=== PATIENT | female | born 1970 | race Caucasian/White ===

== ENCOUNTER 2022-05-18 06:17 | Emergency (ER) | payer MEDICARE, MEDICAID, SELFPAY ==
[2022-05-18 06:27] VITALS: BP 105/68; PULSE 127; RESP 18; TEMP 37.4; O2SAT 96
[2022-05-18 07:18] LABS: Influenza A QL RT-PCR Positive (Negative); Influenza B QL RT-PCR Negative (Negative); RSV RNA, RT-PCR Negative (Negative); SARS-CoV-2 RNA PCR Negative
--- NOTE | 2022-05-18 08:25 | ED.FEVER ---
HPI - Fever General Chief Complaint: Fever Stated Complaint: fevers Time Seen by Provider: 05/18/22 07:58 History of Present Illness HPI Narrative: 52-year-old female presenting the emergency department for evaluation of fever body aches cough and right flank pain since May 06. Patient states she was initially evaluated at [facility] emergency department and was diagnosed with strep throat. Patient then had follow-up with her primary care physician. Patient states she did complete a course of azithromycin. Patient states she has since had worsening body ache and fatigue. Related Data Allergies Allergy/AdvReac Type Severity Reaction Status Date / Time codeine Allergy Unknown Verified 10/05/17 08:18 Penicillins Allergy Unknown Verified 10/05/17 08:18 tetracycline Allergy Unknown Verified 10/05/17 08:18 Review of Systems Review of Systems: CONSTITUTIONAL: See HPI EYES: Denies visual changes, redness, or discharge. ENT: See HPI CARDIOVASCULAR: Denies chest pain, palpitations, or edema. RESPIRATORY: See HPI GASTROINTESTINAL: Denies abdominal pain, nausea, vomiting, or diarrhea. GENITOURINARY: Denies dysuria or hematuria. SKIN: Denies rash or itching. MUSCULOSKELETAL: Denies back pain, joint pain, or myalgia. NEUROLOGIC: Denies headache, numbness, or weakness. [facility] Family History Family History (Updated 10/05/17 @ 08:21 by DOCTOR UNKNOWN) Father Family history of malignant neoplasm Patient's father is Family history of alcoholism Mother Patient's mother is Cerebrovascular accident Family history of coronary artery disease Depression Grandparent Family history of coronary artery disease Sibling Patient's brother is in good health Other Family history of mental disorder Hypertension Social History Social History Smoking status: Heavy tobacco smoker Second hand tobacco smoke exposure: Yes Alcohol intake: never Substance use type: marijuana Exam Narrative: APPEARANCE: Ill-appearing HEAD: normocephalic, atraumatic. EYES: PERRLA/EOMI, conjunctivae clear. NOSE: Normal no drainage EARS:TMS clear with good light reflex. THROAT: Posterior pharynx erythema NECK: Supple. No adenopathy, no masses. RESPIRATORY: Airway patent, respirations nonlabored. Clear to auscultation bilaterally, no rales, rhonchi, wheezing. CARDIOVASCULAR: Regular rate and rhythm without murmurs rubs or gallops. ABDOMINAL: Soft, nontender, nondistended, normal bowel sounds MUSCULOSKELETAL: Moves all extremities. Strength/ROM intact, No edema, No calf tenderness. NEURO: Alert. Cranial nerves II through XII intact. Grossly intact SKIN: Warm, dry. Normal Color Course Course Emergency Course: Patient did feel improved with treatment. Patient was given a second course of antibiotics for her strep throat. Patient was started on Tamiflu for her influenza. Patient was also provided with albuterol inhaler and Tessalon Perles for cough. Patient states she does feel improved. Patient was comfortable with the plan for discharge and close follow-up. Patient was educated on reasons to return to the emergency department. Vital Signs Vital signs: Vital Signs Temperature 99.4 F 05/18/22 06:27 Pulse Rate 127 H 05/18/22 06:27 Respiratory Rate 18 05/18/22 06:27 Blood Pressure 105/68 05/18/22 06:27 Pulse Oximetry 96 05/18/22 06:27 Oxygen Delivery Room Air 05/18/22 06:27 Temperature 99.4 F 05/18/22 06:27 Pulse Rate 91 05/18/22 09:45 Respiratory Rate 16 05/18/22 09:45 Blood Pressure 107/67 05/18/22 09:45 Pulse Oximetry 97 05/18/22 09:45 Oxygen Delivery Room Air 05/18/22 06:27 MDM - Fever Lab Data 05/18/22 08:33 05/18/22 08:33 Labs: Lab Results 05/18/22 05/18/22 05/18/22 Range/Units 06:23 08:33 08:33 WBC 7.3 (4.5-10.0) K/mm3 RBC 3.92 L (4.2-5.4) M/mm3 Hgb 12.7 (12.0-15.0) g/dL Hct 37.3
[2022-05-18 08:35] VITALS: BP 111/63; PULSE 101; RESP 16; O2SAT 93
[2022-05-18 08:56] LABS: Alanine Aminotransferase 16 U/L (6-35); Albumin Level 4.3 g/dL (3.5-5.1); Alkaline Phosphatase 92 U/L (38-126); Anion Gap 9 mmol/L (8-16); Aspartate Amino Transferase 25 U/L (14-36); Bilirubin,Total 0.2 mg/dL (0.2-1.3); Blood Urea Nitrogen 8 mg/dL (7-17); Calcium 8.3 mg/dL (8.4-10.2); Carbon Dioxide 21 mmol/L (22-30); Chloride 104 mmol/L (98-107); Estimated CRCL calculation 78 ml/min; Estimated Glomerular Filt Rate > 60; Glucose 118 mg/dL (65-110); Potassium 3.7 mmol/L (3.4-5.0); Sodium 134 mmol/L (137-145)
[2022-05-18 08:57] LABS: Basophils Absolute Auto 0.1 K/mm3 (0.0-0.1); Basophils Percent Auto 1.2 % (0.2-1.2); Eosinophils Absolute Auto 0.1 K/mm3 (0-0.3); Eosinophils Percent Auto 1.2 % (0-4.4); Hematocrit 37.3 % (37.0-47.0); Hemoglobin 12.7 g/dL (12.0-15.0); Immature Granulocyte Absolute 0.09 K/mm3 (0.00-0.031); Immature Granulocyte Percent A 1.2 % (0-0.5); Lymphocytes Absolute Auto 2.68 K/mm3 (0.9-3.2); Lymphocytes Percent Auto 36.5 % (18.3-44.2); Mean Corpuscular Hemoglobin 32.4 pg (26-34); Mean Corpuscular Volume 95.2 fl (80-100); Mean Platelet Volume 9.4 fl (7.4-10.4); Monocytes Absolute Auto 1.1 K/mm3 (0.1-0.6); Monocytes Percent Auto 14.4 % (2.6-8.5); Neutrophils Absolute Auto 3.3 K/mm3 (1.3-6.7); Neutrophils Percent Auto 45.5 % (45.5-73.1); Platelet Count Result 391 k/mm3 (150-375); Red Blood Count 3.92 M/mm3 (4.2-5.4); Red Cell Distribution Width 13.6 % (11.5-14.5); White Blood Count 7.3 K/mm3 (4.5-10.0)
[2022-05-18 09:10] LABS: Strep Group A RT-PCR DETECTED (Negative)
[2022-05-18 09:24] VITALS: BP 107/75; PULSE 98; RESP 18; O2SAT 96
[2022-05-18] MEDS: SODIUM CHLORIDE 0.9% IV 1,000 ML 999 ML IV CONT (09:24)
[2022-05-18] MEDS: CLINDAMYCIN HCL 150 MG CAP PO (09:44)
[2022-05-18] MEDS: OSELTAMIVIR PHOSPHATE 75 MG CAPSULE PO (09:44)
[2022-05-18 09:45] VITALS: BP 107/67; PULSE 91; RESP 16; O2SAT 97
[2022-05-18] MEDS: KETOROLAC 15 MG/ML VIAL (*BKC) IV PUSH (09:53)
[2022-05-18 10:03] LABS: Add Urine Microscopic? YES; Appearance Urine Clear (Clear); Bilirubin Urine Negative (Negative); Blood Urine 1+ (Negative); Color Urine Light Yellow (Yellow); Glucose Urine UA Negative (Negative); Ketones Urine 1+ mg/dL (Negative); Leukocyte Esterase Ur Negative LEU/UL (Negative); Nitrate Urine Negative (Negative); Protein Urine Negative (Negative); Urobilinogen Urine 0.2 mg/dL (<2.0)
[2022-05-18 10:13] LABS: Bacteria Urine Trace /hpf; RBC Urine 0-2 /hpf (0-2); Squamous Epithelial Cell Urine Rare /hpf (Few); WBC Urine 0-3 /hpf
== END 2022-05-18 10:30 | disposition home or self-care (01) ==
PROVIDERS: Emergency Medicine; Emergency Provider Emergency Medicine; PCP Family Medicine
DX: J02.0 Streptococcal pharyngitis (principal); J10.1 Influenza due to other identified influenza virus with other respiratory manifestations; Z20.822 Contact with and (suspected) exposure to COVID-19; F17.200 Nicotine dependence, unspecified, uncomplicated
CPT/HCPCS: 36415; 80053; 81001; 85025; 87637; 87651; 96361; 96365; 96375; 99284; A9270; J0131; J1885; J7030

== ENCOUNTER 2023-01-26 11:57 | Emergency (ER) | payer MEDICARE, MEDICAID, SELFPAY ==
--- NOTE | ~2023-01-26 | XR_ITS ---
EXAMINATION: XR chest 2V DATE: 01/26/2023 12:23 INDICATION: Chest pain, tachycardia and shortness of breath TECHNIQUE: PA and lateral views of the chest were obtained. COMPARISON: Chest radiograph dated 07/09/2009 FINDINGS: Mild right apical pleural-parenchymal scarring. New calcified left lower lobe nodule consistent with old granulomatous disease. No other airspace opacities, pulmonary edema, pleural effusion or pneumoth orax. The cardiomediastinal silhouette is normal. Bilateral breast implants. IMPRESSION: 1. No acute cardiopulmonary disease. Reviewed, dictated and finalized at location A.
--- NOTE | 2023-01-26 12:00 | ECG_ITS ---
Measurements Intervals [place] Rate: 99 P: 58 AR: 137 QRS: 50 QRSD: 80 T: 54 QT: 351 QTc: 451 Interpretive Statements SINUS RHYTHM LOW QRS VOLTAGE IN PRECORDIAL LEADS [QRS DEFLECTION < 1.0 mV IN CHEST LEADS] BORDERLINE ECG NO PREVIOUS ECG AVAILABLE FOR COMPARISON Electronically Signed On 01-26-2023 12:20:42 CDT by Aki Atkins M.D.
[2023-01-26 12:23] VITALS: BP 118/74; PULSE 95; RESP 16; TEMP 36.4; O2SAT 99
[2023-01-26 12:37] LABS: Basophils Absolute Auto 0.1 K/mm3 (0.0-0.1); Basophils Percent Auto 1.2 % (0.2-1.2); Eosinophils Absolute Auto 0.1 K/mm3 (0-0.3); Eosinophils Percent Auto 0.9 % (0-4.4); Hematocrit 41.4 % (37.0-47.0); Hemoglobin 13.9 g/dL (12.0-15.0); Immature Granulocyte Percent A 0.9 % (0-0.5); Lymphocytes Percent Auto 53.1 % (18.3-44.2); Mean Corpuscular HGB Conc 33.6 g/dl (32-36); Mean Corpuscular Hemoglobin 32.2 pg (26-34); Mean Corpuscular Volume 95.8 fl (80-100); Mean Platelet Volume 9.2 fl (7.4-10.4); Monocytes Percent Auto 9.1 % (2.6-8.5); Neutrophils Absolute Auto 3.9 K/mm3 (1.3-6.7); Neutrophils Percent Auto 34.8 % (45.5-73.1); Platelet Count Result 464 k/mm3 (150-375); Red Blood Count 4.32 M/mm3 (4.2-5.4); Red Cell Distribution Width 13.4 % (11.5-14.5); White Blood Count 11.1 K/mm3 (4.5-10.0)
[2023-01-26 12:48] LABS: Alanine Aminotransferase 16 U/L (6-35); Albumin Level 4.3 g/dL (3.5-5.1); Alkaline Phosphatase 89 U/L (38-126); Anion Gap 11 mmol/L (8-16); Aspartate Amino Transferase 23 U/L (14-36); Bilirubin,Total 0.3 mg/dL (0.2-1.3); Blood Urea Nitrogen 12 mg/dL (7-17); Calcium 8.9 mg/dL (8.4-10.2); Carbon Dioxide 23 mmol/L (22-30); Chloride 104 mmol/L (98-107); Estimated CRCL calculation 68 ml/min; Estimated Glomerular Filt Rate > 60; Glucose 129 mg/dL (65-110); Lipase 44 U/L (23-300); Potassium 4.3 mmol/L (3.4-5.0); Sodium 138 mmol/L (137-145)
[2023-01-26 12:52] LABS: INR 0.9
[2023-01-26 12:53] LABS: Partial Thromboplastin Time 29.8 SECONDS (22.3-36.8)
[2023-01-26 12:58] LABS: Troponin I < 0.012 ng/mL (0.000-0.034)
--- NOTE | 2023-01-26 15:02 | PC.NURSE ---
attempted to call patient for room without answer.
--- NOTE | 2023-01-26 15:22 | PC.NURSE ---
called patient from waiting room with no answer. left without being seen
== END 2023-01-26 16:36 | disposition left against medical advice (07) ==
PROVIDERS: Emergency Provider Student in an Organized Health Care Education/Training Program; PCP Family Medicine
DX: R06.02 Shortness of breath (principal)
CPT/HCPCS: 36415; 71046; 80053; 83690; 84484; 85025; 85610; 85730; 93005; 99199

== ENCOUNTER 2023-03-15 13:56 | Outpatient (CLI) | payer MEDICARE, MEDICAID, SELFPAY ==
--- NOTE | 2023-03-19 15:48 | WPDHOLTEREM ---
Holter/Event Monitor Holter/Event Monitor Date of procedure: 03/15/23 Holter/Event Procedure: 48 Hr Holter Monitor Indications: Tachycardia Conclusion: 1. 48 hour holter monitor on 03/15/23. 2. Underlying rhythm is sinus rhythm. HR range 69-156 bpm; average HR 92 bpm. HR at 156 bpm was at 13:39. 3. There are 3 premature supraventricular complexes and 3 supraventricular couplets. No supraventricular tachycardia. 4. There are 4 premature ventricular complexes. No ventricular tachycardia. 5. No sinoatrial or atrioventricular blocks. No significant pauses greater than 2 seconds. 6. No symptoms available for correlation.
== END 2023-03-15 13:57 | disposition home or self-care (01) ==
LOC: ANHCARD 13:57
PROVIDERS: PCP Family Medicine; Visit Provider Nurse Practitioner Family
DX: R00.0 Tachycardia, unspecified (principal)
CPT/HCPCS: 93225; 93226

== ENCOUNTER 2024-07-12 13:34 | Outpatient (CLI) | payer MEDICARE, MEDICAID, SELFPAY ==
--- NOTE | ~2024-07-12 | US_ITS ---
US abdomen limited INDICATION: Leukocytosis PROCEDURE: Realtime right upper abdominal ultrasound. COMPARISON: CT dated 07/08/2009 FINDINGS: The pancreas is normal without focal mass or pancreatic ductal dilation. Liver echotexture is normal without focal mass or intrahepatic biliary dilatation. There is normal directional flow i n the portal vein. Gallbladder is surgically absent Common bile duct measures 11 mm. No sonographic Barrett's sign. Spl een is surgically absent. IMPRESSION: 1: Status post cholecystectomy with expected prominence of the bile ducts. Reviewed, dictated and finalized at location B. ER ASSEMBLER
--- OUTSIDE RECORDS SUMMARY | 2024-07-12 13:39 | XMS_ITS | Referral Summary ---
Author Organization [facility] Address [address] [place] [address] Care Team Providers Care Horse Race Timer Name Role Phone Stephanie Faustin LEAD ELECTRICAL CONTROLS ENGINEER-[facility] Primary Care Provider + Source Comments [facility] and Associated [facility]ician Practices is amultiple site organization consisting of ambulatory clinics and hospital sitesin [place], [place], [place] and [place]. This disclosure is being madepursuant to the Care Everywhere program and may not contain all information available regarding this patient. Last updated 18.[facility] Encounters Date Type Department Care Team Description 07/05/2024 Orders Only [facility] Cancer [facility] [address] [place] [phone] Joey Canela MD 07/04/[address] [address] Joey Canela MD General 06/27/2024 12:50 PM INDUSTRIAL ENGINEERING INTERN Office Visit [facility] Cancer [address] [address] Joey Canela MD Leukocytosis, unspecified type (Primary Dx); Tobacco abuse 05/11/2024 Orders Only [facility] - Rheumatology [address] [place] [address], [address] [phone] Tamika George MD Positive RENO (antinuclear antibody); Leukocytosis, unspecified type 05/02/2024 Telephone [facility] - Rheumatology [address] [place] [address], [address] [place] [address] Tamika George MD Order 04/25/2024 11:20 AM INDUSTRIAL ENGINEERING INTERN Office Visit [facility] - Rheumatology [address], [address] [place] [address] Tamika George MD Positive RENO (antinuclear antibody) (Primary Dx); Polyarthralgia; Myalgia, multiple sites; Other fatigue; Dry mouth; Numbness; Other low back pain; Leukocytosis, unspecified type from Last 3 Months Allergies Active Allergy Reactions Criticality Noted Date Comments Codeine Swelling High 04/12/2023 Penicillins Anaphylaxis High 04/04/2024 Tetracycline Rash Medium 04/04/2024 Medications * Be aware that medications may not be up to date on this document. Alwaysverify current medications with the patient. Medication Sig Dispensed Refills Start Date End Date Status albuterol HFA (Proventil; Ventolin; Proair) 108 (90 Base) MCG/ACT inhaler Take 2 (two) puffs by mouth every 4 hours as needed Active doxepin (SINEquan) 150 MG capsule Take 1 (one) capsule by mouth at bedtime Active ezetimibe (Zetia) 10 MG tablet Take 1 (one) tablet by mouth once daily Active hydrOXYzine pamoate (Vistaril) 25 MG capsule Take 1 (one) capsule by mouth 3 times daily 03/28/2024 Active rosuvastatin (Crestor) 40 MG tablet Take 1 (one) tablet by mouth once daily Active ibuprofen (Motrin) 600 MG tablet 08/23/2023 Active temazepam (Restoril) 30 MG capsule Take 1 (one) capsule by mouth at bedtime Active hydroxychloroquin e (Plaquenil) 200 MG tabletIndications :Positive RENO (antinuclear antibody) Take 1 (one) tablet by mouth once daily 30 tablet 1 04/25/2024 Active Other Smokes medical marijuana prn for pain Active hydrOXYzine pamoate (Vistaril) 50 MG capsule Take 1 (one) capsule by mouth 3 times daily as needed 06/27/2024 Discontinued (Tx Complete) Active Problems No known active problems Social History Tobacco Use Types Packs/Day Years Used Date Smoking Tobacco: Every Day Cigarettes Smokeless Tobacco: Never Comments:1/2-1 pack a day PHQ-2 Answer Date Recorded Patient Health Questionnaire-2 Score 0 06/27/2024 Hunger Vital Sign Answer Date Recorded Within the past 12 months, y ou worried that your food would run out before you got the money to buy more. Never true 06/27/19 25 Within the past 12 months, t he food you bought just didn't last and you didn't have money to get more. Never true 06/27/2024 Sex and Gender Information Value Date Recorded Sex Assigned at Not on file Gender Identity Not on file Sexual Orientation Not on file Last Filed Vital Signs Vital Sign Reading Time Taken Comments Blood Pressure 122/72 06/27/2024 1:02 PM INDUSTRIAL ENGINEERING INTERN Pulse 104 06/27/2024 1:02 PM INDUSTRIAL ENGINEERING INTERN Temperature 36.7 C (98.1 F) 06/27/2024 1:02 PM INDUSTRIAL ENGINEERING INTERN Respiratory Rate - - Oxygen Saturation 100% 06/27/2024 1:02 PM INDUSTRIAL ENGINEERING INTERN Inhaled Oxygen Concentration - - Weight 68.8 kg (151 lb 12 oz) 06/27/2024 1:02 PM INDUSTRIAL ENGINEERING INTERN Height 170.2 cm (5' 7 ) 06/27/2024 1:02 PM INDUSTRIAL ENGINEERING INTERN Body Mass Index 23.77 06/27/2024 1:02 PM INDUSTRIAL ENGINEERING INTERN Plan of Treatment Upcoming Encounters Date Type Department Care Team (Late st Contact Info) Description 12/26/2024 2:00 PM CDT Documentation [address] [address] 12/26/2024 2:10 PM CDT Office Visit [address] [address] Joey Canela MD [address] [place] [phone] Procedures Procedure Name Priority Date/Time Associated Diagnosis Comments TSH HI LOW REFLEX FREE T4 Routine 06/27/2024 3:44 PM INDUSTRIAL ENGINEERING INTERN Leukocytosis, unspecified type CBC W AUTO DIFFERENTIAL (CANCER CARE) Routine 06/27/2024 1:46 PM INDUSTRIAL ENGINEERING INTERN Leukocytosis, unspecified type XR CHEST 2VW Routine 05/08/2024 Positive RENO (antinuclear antibody) Leukocytosis, unspecified type SS-A/SS-B (SJOGREN'S) ANTIBODY PANEL Routine 04/12/2024 12:08 PM INDUSTRIAL ENGINEERING INTERN Positive RENO (antinuclear antibody) Polyarthralgia Myalgia, multiple sites Other fatigue Dry mouth Numbness Other low back pain OLSON (SM) ANTIBODY UBALDO Routine 04/12/20 12:08 PM INDUSTRIAL ENGINEERING INTERN Positive RENO (antinuclear antibody) Polyarthralgia Myalgia, multiple sites Other fatigue Dry mouth Numbness Other low back pain SCLERODERMA 70 (SCL) ANTIBODY Routine 04/12/2024 12:08 PM INDUSTRIAL ENGINEERING INTERN Positive RENO (antinuclear antibody) Polyarthralgia Myalgia, multiple sites Other fatigue Dry mouth Numbness Other low back pain INTERRELATED SPECIAL EDUCATION TEACHER ANTIBODY Routine 04/12/2024 12:08 PM INDUSTRIAL ENGINEERING INTERN Positive RENO (antinuclear antibody) Polyarthralgia Myalgia, multiple sites Other fatigue Dry mouth Numbness Other low back pain RENO BLOOD SCREEN W/REFLEX TITER Routine 04/12/2024 12:08 PM INDUSTRIAL ENGINEERING INTERN Positive RENO (antinuclear antibody) Polyarthralgia Myalgia, multiple sites Other fatigue Dry mouth Numbness Other low back pain LIPID PROFILE Routine 04/12/2024 12:05 PM INDUSTRIAL ENGINEERING INTERN Hyperlipidemia, unspecified hyperlipidemia type SCLEROSIS 12 ANTIBODY PNL Routine 04/12/2024 12:05 PM INDUSTRIAL ENGINEERING INTERN Positive RENO (antinuclear antibody) Polyarthralgia Myalgia, multiple sites Other fatigue Dry mouth Numbness Other low back pain PROTEIN CREATININE RATIO URINE RANDOM PNL Routine 04/12/2024 12:05 PM INDUSTRIAL ENGINEERING INTERN Positive RENO (antinuclear antibody) Polyarthralgia Myalgia, multiple sites Other fatigue Dry mouth Numbness Other low back pain THIOPURINE METHYLTRANSFERASE Routine 04/12/2024 12:05 PM INDUSTRIAL ENGINEERING INTERN Positive RENO (antinuclear antibody) Polyarthralgia Myalgia, multiple sites Other fatigue Dry mouth Numbness Other low back pain DNA ANTIBODY DS CRITHIDIA W/REFLEX TITER Routine 04/12/2024 12:05 PM INDUSTRIAL ENGINEERING INTERN Positive RENO (antinuclear antibody) Polyarthralgia Myalgia, multiple sites Other fatigue Dry mouth Numbness Other low back pain RHEUMATOID FACTOR BLOOD QUANTITATIVE Routine 04/12/2024 12:05 PM INDUSTRIAL ENGINEERING INTERN Positive RENO (antinuclear antibody) Polyarthralgia Myalgia, multiple sites Other fatigue Dry mouth Numbness Other low back pain CALCIUM IONIZED BLOOD Routine 04/12/2024 12:05 PM INDUSTRIAL ENGINEERING INTERN Positive RENO (antinuclear antibody) Polyarthralgia Myalgia, multiple sites Other fatigue Dry mouth Numbness Other low back pain HEPATITIS C AB W/RFLX TO HCV RNA QN PCR Routine 04/12/2024 12:05 PM INDUSTRIAL ENGINEERING INTERN Positive RENO (antinuclear antibody) Polyarthralgia Myalgia, multiple sites Other fatigue Dry mouth Numbness Other low back pain HEPATITIS B SURFACE ANTIGEN W RFLX CONFIRMATION Routine 04/12/2024 12:05 PM INDUSTRIAL ENGINEERING INTERN Positive RENO (antinuclear antibody) Polyarthralgia Myalgia, multiple sites Other fatigue Dry mouth Numbness Other low back pain HEPATITIS B CORE ANTIBODY REFLEX IGM Routine 04/12/2024 12:05 PM INDUSTRIAL ENGINEERING INTERN Positive RENO (antinuclear antibody) Polyarthralgia Myalgia, multiple sites Other fatigue Dry mouth Numbness Other low back pain URINALYSIS W/MICROSCOPIC NO CULTURE Routine 04/12/2024 12:05 PM INDUSTRIAL ENGINEERING INTERN Positive RENO (antinuclear antibody) Polyarthralgia Myalgia, multiple sites Other fatigue Dry mouth Numbness Other low back pain ERYTHROCYTE SEDIMENTATION RATE Routine 04/12/2024 12:05 PM INDUSTRIAL ENGINEERING INTERN Positive RENO (antinuclear antibody) Polyarthralgia Myalgia, multiple sites Other fatigue Dry mouth Numbness Other low back pain CYCLIC CITRULLINATED PEPTIDE(CCP) AB IGG Routine 04/12/2024 12:05 PM INDUSTRIAL ENGINEERING INTERN Positive RENO (antinuclear antibody) Polyarthralgia Myalgia, multiple sites Other fatigue Dry mouth Numbness Other low back pain CREATININE BLOOD Routine 04/12/2024 12:0 5 PM INDUSTRIAL ENGINEERING INTERN Positive RENO (antinuclear antibody) Polyarthralgia Myalgia, multiple sites Other fatigue Dry mouth Numbness Other low back pain C-REACTIVE PROTEIN Routine 04/12/2024 12 :05 PM INDUSTRIAL ENGINEERING INTERN Positive RENO (antinuclear antibody) Polyarthralgia Myalgia, multiple sites Other fatigue Dry mouth Numbness Other low back pain COMPLEMENT C4 Routine 04/12/2024 12:05 PM INDUSTRIAL ENGINEERING INTERN Positive RENO (antinuclear antibody) Polyarthralgia Myalgia, multiple sites Other fatigue Dry mouth Numbness Other low back pain COMPLEMENT C3 Routine 04/12/2024 12:05 PM INDUSTRIAL ENGINEERING INTERN Positive RENO (antinuclear antibody) Polyarthralgia Myalgia, multiple sites Other fatigue Dry mouth Numbness Other low back pain CK BLOOD Routine 04/12/2024 12:05 PM INDUSTRIAL ENGINEERING INTERN Positive RENO (antinuclear antibody) Polyarthralgia Myalgia, multiple sites Other fatigue Dry mouth Numbness Other low back pain CBC W AUTO DIFFERENTIAL Routine 04/12/20 24 12:05 PM INDUSTRIAL ENGINEERING INTERN Positive RENO (antinuclear antibody) Polyarthralgia Myalgia, multiple sites Other fatigue Dry mouth Numbness Other low back pain LUPUS ANTICOAGULANT PANEL W RFLX Routine 04/12/2024 12:05 PM INDUSTRIAL ENGINEERING INTERN Positive RENO (antinuclear antibody) Polyarthralgia Myalgia, multiple sites Other fatigue Dry mouth Numbness Other low back pain CARDIOLIPIN ANTIBODY IGA/IGG/IGM PANEL Routine 04/12/2024 12:05 PM INDUSTRIAL ENGINEERING INTERN Positive RENO (antinuclear antibody) Polyarthralgia Myalgia, multiple sites Other fatigue Dry mouth Numbness Other low back pain BETA-2 GLYCOPROTEIN 1 ANTIBODY IGG/IGM/IGA PANEL Routine 04/12/2024 12:05 PM INDUSTRIAL ENGINEERING INTERN Positive RENO (antinuclear antibody) Polyarthralgia Myalgia, multiple sites Other fatigue Dry mouth Numbness Other low back pain ANGIOTENSIN CONVERTING ENZYME BLOOD Routine 04/12/2024 12:05 PM INDUSTRIAL ENGINEERING INTERN Positive RENO (antinuclear antibody) Polyarthralgia Myalgia, multiple sites Other fatigue Dry mouth Numbness Other low back pain ALDOLASE Routine 04/12/2024 12:05 PM INDUSTRIAL ENGINEERING INTERN Positive RENO (antinuclear antibody) Polyarthralgia Myalgia, multiple sites Other fatigue Dry mouth Numbness Other low back pain from Last 3 Months Results * TSH HI LOW REFLEX FREE T4 (06/27/2024 3:44 PM INDUSTRIAL ENGINEERING INTERN) TSH 1.778 0.350 - 4.940 uIU/mL [facility] INSURANCE BILL Blood BLOOD SPECIMEN / Unknown 06/27/2024 3:44 PM INDUSTRIAL ENGINEERING INTERN 06/27/2024 Comment:Blood Release to [facility] INSURANCE BILL - 06/27/2024 11:06 PM INDUSTRIAL ENGINEERING INTERN Performed at: [address] [place] [id number] Tow Car Driver: Daryn Ruffin MD, Phone: [phone] Joey Canela MD LAB - CHEMISTRY CARI DELGADO [facility] INSURANCE BILL [address] [place] [address] * (ABNORMAL) CBC W AUTO DIFFERENTIAL (CANCER CARE) (06/27/2024 1:46 PM INDUSTRIAL ENGINEERING INTERN) WBC 9.6 4.4 - 10.7 x10E9/L 06/27/2024 2:09 PM INDUSTRIAL ENGINEERING INTERN [facility] CC LAB STM Neutrophils % 37.1(L) 44.0 - 73.0 % 06/27/2024 2:09 PM INDUSTRIAL ENGINEERING INTERN [facility] CC LAB STM Lymphocytes % 50.8(H) 20.0 - 43.0 % 06/27/2024 2:09 PM INDUSTRIAL ENGINEERING INTERN [facility] CC LAB STM Monocytes % 9.9 5.0 - 13.0 % 06/27/2024 2:09 PM INDUSTRIAL ENGINEERING INTERN [facility] CC LAB STM Eosinophils % 0.5 0.0 - 6.0 % 06/27/2024 2:09 PM INDUSTRIAL ENGINEERING INTERN [facility] CC LAB STM Basophils % 1.1 0.0 - 2.0 % 06/27/2024 2:09 PM INDUSTRIAL ENGINEERING INTERN [facility] CC LAB STM Immature Granulocytes 0.6 <=1 % 06/27/2024 2:09 PM INDUSTRIAL ENGINEERING INTERN [facility] CC LAB STM Neutrophil Absolute 3.55 2.01 - 7.14 x10E9/L 06/27/2024 2:09 PM INDUSTRIAL ENGINEERING INTERN [facility] CC LAB STM Lymphocytes Absolute 4.88(H) 1.07 - 3.94 x10E9/L 06/27/2024 2:09 PM INDUSTRIAL ENGINEERING INTERN [facility] CC LAB STM Monocytes Absolute 0.95 0.26 - 1.07 x10E9/L 06/27/2024 2:09 PM INDUSTRIAL ENGINEERING INTERN [facility] CC LAB STM Eosinophils Absolute 0.05 0 - 0.47 x10E9/L 06/27/2024 2:09 PM INDUSTRIAL ENGINEERING INTERN [facility] CC LAB STM Basophils Absolute 0.11(H) 0 - 0.08 x10E9/L 06/27/2024 2:09 PM INDUSTRIAL ENGINEERING INTERN [facility] CC LAB STM RBC 4.30 3.80 - 5.20 x10E12/L 06/27/2024 2:09 PM INDUSTRIAL ENGINEERING INTERN [facility] CC LAB STM Hemoglobin 14.0 12.0 - 15.6 gm/dL 06/27/2024 2:09 PM INDUSTRIAL ENGINEERING INTERN [facility] CC LAB STM Hematocrit 41.0 35.9 - 45.5 % 06/27/2024 2:09 PM INDUSTRIAL ENGINEERING INTERN [facility] CC LAB STM MCV 95.3 80.7 - 98.3 fl 06/27/2024 2:09 PM INDUSTRIAL ENGINEERING INTERN [facility] CC LAB STM MCH 32.6 26.7 - 34.0 pg 06/27/2024 2:09 PM INDUSTRIAL ENGINEERING INTERN [facility] CC LAB STM MCHC 34.1 30.8 - 35.9 gm/dL 06/27/2024 2:09 PM INDUSTRIAL ENGINEERING INTERN [facility] CC LAB STM RDW-CV 14.2 12.1 - 14.9 % 06/27/2024 2:09 PM INDUSTRIAL ENGINEERING INTERN [facility] CC LAB STM Platelet Count 352 153 - 416 x10E9/L 06/27/2024 2:09 PM INDUSTRIAL ENGINEERING INTERN [facility] CC LAB STM MPV 9.0(L) 9.4 - 12.9 fl 06/27/2024 2:09 PM INDUSTRIAL ENGINEERING INTERN [facility] CC LAB STM NRBC 0.0 <=0 /100 WBC 06/27/2024 2:09 PM INDUSTRIAL ENGINEERING INTERN [facility] CC LAB STM Blood BLOOD SPECIMEN / Unknown 06/27/2024 1:46 PM INDUSTRIAL ENGINEERING INTERN 06/27/2024 1:46 PM INDUSTRIAL ENGINEERING INTERN Joey Canela MD LAB - HEMATOLOGY ORD ERABLES [facility] [address] * XR Chest 2Vw (05/08/2024) Anatomical Region Laterality Modality Chest Other Tamika George MD DIAGNOSTIC IMAGING O RDERABLES * OLSON (SM) ANTIBODY UBALDO (04/12/2024 12:08 PM INDUSTRIAL ENGINEERING INTERN) SM Antibody <1.0 NEG <1.0 NEG [facility] Comment: Test Performed at: [facility] [facility] [address] LORNA HOLLEY MD Blood BLOOD SPECIMEN / Unknown 04/12/2024 12:08 PM INDUSTRIAL ENGINEERING INTERN 04/12/2024 12:08 PM INDUSTRIAL ENGINEERING INTERN Tamika George MD LAB - CHEMISTRY ORDE RABLES [facility] [address] [place] [address] * INTERRELATED SPECIAL EDUCATION TEACHER ANTIBODY (04/12/2024 12:08 PM INDUSTRIAL ENGINEERING INTERN) INTERRELATED SPECIAL EDUCATION TEACHER Antibody <1.0 NEG <1.0 NEG [facility] Comment: Test Performed at: [employer] [id number] [address], [place] [id number] LORNA HOLLEY MD Blood BLOOD SPECIMEN / Unknown 04/12/2024 12:08 PM INDUSTRIAL ENGINEERING INTERN 04/12/2024 12:08 PM INDUSTRIAL ENGINEERING INTERN Tamika George MD LAB - CHEMISTRY CARI DELGADO Performing Organization Address [facility] de Phone Number [place] [phone] * RENO BLOOD SCREEN W/REFLEX TITER (04/12/2024 12:08 PM INDUSTRIAL ENGINEERING INTERN) RENO Screen NEGATIVE NEGATIVE [facility] Comment: RENO IFA is a first line screen for detecting the presence of up to approximately 150 autoantibodies in various autoimmune diseases. A negative RENO IFA result suggests an RENO-associated autoimmune disease is not present at this time, but is not definitive. If there is high clinical suspicion for Sjogren's syndrome, testing for anti-SS-A/Ro antibody should be considered. Anti-Tessie-1 antibody should be considered for clinically suspected inflammatory myopathies. AC-0: Negative International Consensus on RENO Patterns (https://doi.org/10.1515/chvj-5379-1324) For additional information, please refer to http://education.I-lighting/faq/QWN497 (This link is being provided for informational/ educational purposes only.) Test Performed at: [facility] [place] [address] LORNA HOLLEY MD Blood BLOOD SPECIMEN / Unknown 04/12/2024 12:08 PM INDUSTRIAL ENGINEERING INTERN 04/12/2024 12:08 PM INDUSTRIAL ENGINEERING INTERN Tamika George MD LAB - CHEMISTRY CARI DELGADO Performing Organization Address [facility] Co de Phone Number [facility] [address] [place] [address] * SS-A/SS-B (SJOGREN'S) ANTIBODY PANEL (04/12/2024 12:08 PM INDUSTRIAL ENGINEERING INTERN) Pathologist [facility] Sjogren's Antibodies (SSA) <1.0 NEG <1.0 NEG [facility] Sjogren's Antibodies (SSB) <1.0 NEG <1.0 NEG [facility] Comment: Test Performed at: [facility] [address] [place] [address] LORNA HOLLEY MD Blood BLOOD SPECIMEN / Unknown 04/12/2024 12:08 PM INDUSTRIAL ENGINEERING INTERN 04/12/2024 12:08 PM INDUSTRIAL ENGINEERING INTERN Tamika George MD LAB - CHEMISTRY CARI DELGADO Performing Organization Address [facility]/ZIP Co de Phone Number [facility] [address] [place] [address] * SCLERODERMA 70 (SCL) ANTIBODY (04/12/2024 12:08 PM INDUSTRIAL ENGINEERING INTERN) SCL-70 Antibody <1.0 NEG <1.0 NEG [facility] Comment: Test Performed at: [employer] [address] [place] [id number] LORNA HOLLEY MD Blood BLOOD SPECIMEN / Unknown 04/12/2024 12:08 PM INDUSTRIAL ENGINEERING INTERN 04/12/2024 12:08 PM INDUSTRIAL ENGINEERING INTERN Tamika George MD LAB - CHEMISTRY CARI DELGADO Performing Organization Address [facility] Co de Phone Number [facility] [phone] [place] [address] * (ABNORMAL) SCLEROSIS 12 ANTIBODY PNL (04/12/2024 12:05 PM INDUSTRIAL ENGINEERING INTERN) SCL-70 <11 <11 [facility] Centromere protein A Antibody <11 <11 [facility] Centromere protein B Antibody <11 <11 [facility] RP11 14(H) <11 [facility] RP11 <11 <11 [facility] U1 small nuclear ribonucleoprotein A Antibody <11 <11 [facility] U1 small nuclear ribonucleoprotein C Antibody <11 <11 [facility] U1 small nuclear ribonucleoprotein 70kD Antibody <11 <11 [facility] Fibrillarin <11 <11 [facility] TH/TO <11 <11 [facility] PM/SCL 100 <11 <11 [facility] PM/SCL 75 <11 <11 [facility] Comment: The [place] [employer] (ACR) considers anti-Scl-70 (also known as anti-topoisomerase I), anti-centromere and/or anti-RNA polymerase III antibodies part of the classification criteria for Systemic Sclerosis(SSc) given that the antibodies are present in 30%-60% of patients with SSc. Centromere protein B (CENP B) antibody positivity is found in 64-95% of patients with a limited form of cutaneous systemic sclerosis i.e. CREST syndrome. The addition of centromere protein A (CENP A) antibody to CENP B antibody improves specificity for diagnosis of SSc. Patients presenting with diffuse cutaneous systemic sclerosis (dcSSc) and features of CREST may have both centromere (A & B) antibodies and Scl-70 antibodies. RNA polymerase III antibodies target RNAP III epitopes 11 (RP11) and 155 (RP155). Anti-RP11 antibody occurs in about 10% of scleroderma patients and anti-RP155 antibodies in about 8%. Svjm-G0-cwVGM antibodies are associated with SSc and inflammatory myopathy overlap syndromes. Three major components of U1-snRNP are tested: U1-snRNP INTERRELATED SPECIAL EDUCATION TEACHER A, U1-snRNP INTERRELATED SPECIAL EDUCATION TEACHER C, U1-snRNP [id number]. The presence of U1-snRNP antibodies occur in 14% and 26% of Caucasians and Americans, respectively, in [place]. Anti-fibrillarin (anti-U3RNP) antibodies are specific for SSc, but are mutually exclusive from Scl-70, CENP, and RNAP III antibodies. Anti-U3RNP antibodies are detected in 4-10% of SSc patients, and when present are associated with dcSSc and frequently visceral renal and cardiac involvement. Fibrillarin antibodies are found more frequently in -[place] patients and when seen in this population, the antibodies are associated with severe pulmonary disease, pulmonary hypertension, severe small bowel involvement, and a poorer prognosis. Anti-Th/To antibodies are present in 1-13% of SSc patients, and are rarely found in other autoimmune diseases. Anti-Th/To antibodies are primarily associated with localized cutaneous systemic sclerosis (lcSSc). Anti-Th/To antibodies are also associated with pericarditis, interstitial lung disease and a high frequency of intrinsic pulmonary hypertension, and hence, a poorer prognosis. Autoantibodies to PM/Scl, the human exosome complex, are found in 4-11% of patients with SSc. PM/Scl antibodies have also been observed in polymyositis/SSc overlap syndromes and other autoimmune diseases. The majority of anti-PM/Scl reactivity is directed to one of two proteins: PM/Fpr789 and/or PM/Scl75. More information can be found at [email or web address].action ?dc=CF-SystScler This test was developed and its analytical performance characteristics have been determined by [employer]. It has not been cleared or approved by FDA. This assay has been validated pursuant to the CLIA regulations and is used for clinical purposes. Test Performed at: [facility] [facility] [address] [place] [address] KISHAN ENCINAS MD,PHD,DELBERT Blood BLOOD SPECIMEN / Unknown 04/12/2024 12:05 PM INDUSTRIAL ENGINEERING INTERN 04/12/2024 12:06 PM INDUSTRIAL ENGINEERING INTERN Tamika George MD LAB - SEROLOGY ORDER DEEPTI Performing Organization Address [facility] Co de Phone Number [facility] [address] [place] [address] * HEPATITIS C AB W/RFLX TO HCV RNA QN PCR (04/12/2024 12:05 PM INDUSTRIAL ENGINEERING INTERN) Pathologist [facility] Hepatitis C Antibody NON-REACTI VE NON-REACT PRASHANTH [facility] [employer] Comment: HCV antibody was non-reactive. There is no laboratory evidence of HCV infection. In most cases, no further action is required. However, if recent HCV exposure is suspected, a test for HCV RNA (test code 75441) is suggested. For additional information please refer to http://education.Camperoo/faq/QXV46y2 (This link is being provided for informational/ educational purposes only.) Test Performed at: [employer] [address] [place] [address] LORNA HOLLEY MD Blood BLOOD SPECIMEN / Unknown 04/12/2024 12:05 PM INDUSTRIAL ENGINEERING INTERN 04/12/2024 12:06 PM INDUSTRIAL ENGINEERING INTERN Tamika George MD LAB - CHEMISTRY ORDE RABLES Performing Organization Address City/[facility]/ZIP Co de Phone Number [facility] [address] [place] [address] * DNA ANTIBODY DS CRITHIDIA W/REFLEX TITER (04/12/2024 12:05 PM INDUSTRIAL ENGINEERING INTERN) Pathologist [facility] dsDNA Antibody Crithidia IFA NEGATIVE NEGATIVE [facility] Comment: Test Performed at: [facility] [facility] [address] [place] [address] KISHAN ENCINAS MD,PHD,DELBERT Blood BLOOD SPECIMEN / Unknown 04/12/2024 12:05 PM INDUSTRIAL ENGINEERING INTERN 04/12/2024 12:06 PM INDUSTRIAL ENGINEERING INTERN Tamika George MD LAB - HEMATOLOGY ORD ERABLES Performing Organization Address [facility] Co de Phone Number [facility] [address] [place] [phone] * URINALYSIS W/MICROSCOPIC NO CULTURE (04/12/2024 12:05 PM INDUSTRIAL ENGINEERING INTERN) Color UA YELLOW YELLOW [facility] Appearance CLEAR CLEAR [facility] Specific [place] UA 1.008 1.001 - 1.035 [facility] pH UA 5.5 5.0 - 8.0 [facility] Glucose UA NEGATIVE NEGATIVE [facility] Bilirubin UA NEGATIVE NEGATIVE [facility] Ketone UA NEGATIVE NEGATIVE [facility] Blood UA NEGATIVE NEGATIVE [facility] Protein UA NEGATIVE NEGATIVE [facility] Nitrite UA NEGATIVE NEGATIVE [facility] Leukocyte UA NEGATIVE NEGATIVE [facility] WBC UA NONE SEEN < OR = 5 /HPF [facility] RBC UA NONE SEEN < OR = 2 /HPF [facility] Epithelial Cell UA NONE SEEN < OR = 5 /HPF [facility] Transitional Epithelial Cells [facility] Renal Epithelial Cells [facility] Bacteria UA NONE SEEN NONE SEEN /HPF [facility] Calcium Oxalate Crystals [facility] Triple Phosphate Crystals [facility] Uric Acid Crystals [facility] Amorphous UA [facility] Crystals UA [facility] Hyaline Casts NONE SEEN NONE SEEN /LPF [facility] Comment: Test Performed at: [facility] [address] [facility] [place] [address] LORNA HOLLEY MD Granular Casts [facility] Casts UA [facility] Yeast [facility] Comments [facility] Note [facility] Comment: Test Performed at: [place] [address] LORNA HOLLEY MD Urine URINE SPECIMEN OBTAINED BY CLEAN CATCH PROCEDURE / Unknown 04/12/2024 12:05 PM INDUSTRIAL ENGINEERING INTERN 04/12/2024 12:06 PM INDUSTRIAL ENGINEERING INTERN Tamika George MD LAB - URINALYSIS ORD ERABLES Performing Organization Address [facility] Co de Phone Number [facility] [address] [place] [address] * HEPATITIS B CORE ANTIBODY REFLEX IGM (04/12/2024 12:05 PM INDUSTRIAL ENGINEERING INTERN) Hepatitis B Core Virus Antibody Total NON-REACTI VE NON-REACT PRASHANTH [facility] Comment: For additional information, please refer to http://education.[employer].DonorsPlay/faq/FGT263 (This link is being provided for informational/ educational purposes only.) Test Performed at: [facility] [id number] [facility] [place] [address] LORNA HOLLEY MD Blood BLOOD SPECIMEN / Unknown 04/12/2024 12:05 PM INDUSTRIAL ENGINEERING INTERN 04/12/2024 12:06 PM INDUSTRIAL ENGINEERING INTERN Tamika George MD LAB - SEROLOGY ORDER DEEPTI [facility] [address] [place] [address] * CARDIOLIPIN ANTIBODY IGA/IGG/IGM PANEL (04/12/2024 12:05 PM INDUSTRIAL ENGINEERING INTERN) Pathologist [facility] Cardiolipin Antibody IgA <2.0 APL-U/mL [facility] Comment: Value Interpretation ----- < 20.0 Antibody not detected > or = 20.0 Antibody detected Cardiolipin Antibody IgG <2.0 GPL-U/mL [facility] Comment: Value Interpretation ----- < 20.0 Antibody not detected > or = 20.0 Antibody detected Cardiolipin Antibody IgM <2.0 MPL-U/mL [facility] Comment: Value Interpretation ----- < 20.0 Antibody not detected > or = 20.0 Antibody detected The antiphospholipid antibody syndrome (APS) is a clinical-pathologic correlation that includes a clinical event (e.g. arterial or venous thrombosis, morbidity) and persistent positive antiphospholipid antibodies (IgM, IgG Cardiolipin or b2GPI antibodies greater than the 99th percentile; or a lupus anticoagulant). International consensus guidelines for APS suggest waiting at least 12 weeks before retesting to confirm antibody persistence. The [facility] [employer]up[facility] [employer] [facility] immunological classification criteria for systemic lupus erythematosus (SLE) include testing for isotype IgA, which has yet to be incorporated into APS criteria. Low level antiphospholipid antibodies may sometimes be detected in the setting of infection, drug therapy or aging. For additional information, please refer to http://[employer]Camperoo/faq/GLP791 (This link is being provided for informational/ educational purposes only.) Test Performed at: [facility] [address] [address] [place] [address] NEREYDA KINGSTON Blood BLOOD SPECIMEN / Unknown 04/12/2024 12:05 PM INDUSTRIAL ENGINEERING INTERN 04/12/2024 12:06 PM INDUSTRIAL ENGINEERING INTERN Tamika George MD LAB - SEROLOGY ORDER DEEPTI Performing Organization Address [facility] Co de Phone Number [address] [address] * LUPUS ANTICOAGULANT PANEL W RFLX (04/12/2024 12:05 PM INDUSTRIAL ENGINEERING INTERN) Pathologist [facility] Lupus Anticoagulant NOT DETECTED [facility] Comment: A Lupus Anticoagulant is not detected. For more information on this test, go to: http://[employer]Camperoo/faq/QDZ03a0 (This link is being provided for informational/ educational purposes only.) This interpretation is based on the following test results: PTT LA Screen 34 < OR = 40 sec [facility] dRVVT Screen 45 < OR = 45 sec [facility] Comment: Test Performed at: [facility] [address] [place] [address] NEREYDAJAYE KINGSTON Blood BLOOD SPECIMEN / Unknown 04/12/2024 12:05 PM INDUSTRIAL ENGINEERING INTERN 04/12/2024 12:06 PM INDUSTRIAL ENGINEERING INTERN Tamika George MD LAB - HEMATOLOGY ORD ERABLES Performing Organization Address [facility] Co de Phone Number [address] [address] * BETA-2 GLYCOPROTEIN 1 ANTIBODY IGG/IGM/IGA PANEL (04/12/2024 12:05 PM INDUSTRIAL ENGINEERING INTERN) Pathologist [facility] Beta-2 Glycoprotein I Antibody IgG <2.0 <20.0 U/mL [facility] Comment: Value Interpretation ----- < 20.0 Antibody not detected > or = 20.0 Antibody detected Beta-2 Glycoprotein I Antibody IgM <2.0 <20.0 U/mL [facility] Comment: Value Interpretation ----- < 20.0 Antibody not detected > or = 20.0 Antibody detected Beta-2 Glycoprotein I Antibody IgA <2.0 <20.0 U/mL [facility] Comment: Value Interpretation ----- < 20.0 Antibody not detected > or = 20.0 Antibody detected The antiphospholipid antibody syndrome (APS) is a clinical-pathologic correlation that includes a clinical event (e.g. arterial or venous thrombosis, morbidity) and persistent positive antiphospholipid antibodies (IgM, IgG Cardiolipin or b2GPI antibodies greater than the 99th percentile; or a lupus anticoagulant). International consensus guidelines for APS suggest waiting at least 12 weeks before retesting to confirm antibody persistence. The [facility] Lup[facility] International [facility] immunological classification criteria for systemic lupus erythematosus (SLE) include testing for isotype IgA, which has yet to be incorporated into APS criteria. Low level antiphospholipid antibodies may sometimes be detected in the setting of infection, drug therapy or aging. For additional information, please refer to http://education.Camperoo/faq/NKW955 (This link is being provided for informational/ educational purposes only.) Test Performed at: [facility] [place] [address] [place], [place] RADHA ROMERO MD,PHD Blood BLOOD SPECIMEN / Unknown 04/12/2024 12:05 PM INDUSTRIAL ENGINEERING INTERN 04/12/2024 12:06 PM INDUSTRIAL ENGINEERING INTERN Tamika George MD LAB - SEROLOGY ORDER DEEPTI [facility] [address] [place] [address] * RHEUMATOID FACTOR BLOOD QUANTITATIVE (04/12/2024 12:05 PM INDUSTRIAL ENGINEERING INTERN) Rheumatoid Factor <10 <14 IU/mL [facility] Comment: Test Performed at: [facility] [id number] [facility] [place] [address] LORNA HOLLEY MD Blood BLOOD SPECIMEN / Unknown 04/12/2024 12:05 PM INDUSTRIAL ENGINEERING INTERN 04/12/2024 12:06 PM INDUSTRIAL ENGINEERING INTERN Tamika George MD LAB - CHEMISTRY CARI DELGADO Performing Organization Address [facility] Co de Phone Number [facility] [phone] [place] [address] * C-REACTIVE PROTEIN (04/12/2024 12:05 PM INDUSTRIAL ENGINEERING INTERN) C-Reactive Protein <3.0 <8.0 mg/L [facility] Comment: Test Performed at: [facility] [id number] [facility] [place] [address] LORNA HOLLEY MD Blood BLOOD SPECIMEN / Unknown 04/12/2024 12:05 PM INDUSTRIAL ENGINEERING INTERN 04/12/2024 12:06 PM INDUSTRIAL ENGINEERING INTERN Tamika George MD LAB - CHEMISTRY CARI DELGADO Performing Organization Address [facility] Co de Phone Number [facility] [phone] [place] [address] * ANGIOTENSIN CONVERTING ENZYME BLOOD (04/12/2024 12:05 PM INDUSTRIAL ENGINEERING INTERN) Angiotensin-Conv erting Enzyme 52 9 - 67 U/L [facility] Comment: Test Performed at: [facility] [id number] [facility] [place] [address] LORNA HOLLEY MD Blood BLOOD SPECIMEN / Unknown 04/12/2024 12:05 PM INDUSTRIAL ENGINEERING INTERN 04/12/2024 12:06 PM INDUSTRIAL ENGINEERING INTERN Tamika George MD LAB - CHEMISTRY CARI DELGADO Performing Organization Address [facility] Co de Phone Number [facility] [phone] [place] [address] * ALDOLASE (04/12/2024 12:05 PM INDUSTRIAL ENGINEERING INTERN) Aldolase 6.2 < OR = 8.1 U/L [facility] Comment: Test Performed at: [facility] [address] [facility] [place] [address] LORNA HOLLEY MD Blood BLOOD SPECIMEN / Unknown 04/12/2024 12:05 PM INDUSTRIAL ENGINEERING INTERN 04/12/2024 12:06 PM INDUSTRIAL ENGINEERING INTERN Tamika George MD LAB - CHEMISTRY CARI DELGADO Performing Organization Address [facility] Co de Phone Number [place] [phone] [place] [phone] * THIOPURINE METHYLTRANSFERASE (04/12/2024 12:05 PM INDUSTRIAL ENGINEERING INTERN) TPMT Activity 18 nmol/hr/mL RBC [facility] Comment: Reference Range for TPMT Activity: >12 Normal 4-12 Heterozygote or low metabolizer <4 Homozygote Deficient Range This test was developed and its analytical performance characteristics have been determined by [employer]. It has not been cleared or approved by FDA. This assay has been validated pursuant to the CLIA regulations and is used for clinical purposes. Test Performed at: [facility] [address] [place] [address] KISHAN ENCINAS MD,PHD,DELBERT Blood BLOOD SPECIMEN / Unknown 04/12/2024 12:05 PM INDUSTRIAL ENGINEERING INTERN 04/12/2024 12:06 PM INDUSTRIAL ENGINEERING INTERN Tamika George MD LAB - CHEMISTRY CARI DELGADO Performing Organization Address [facility] Co de Phone Number [facility] [address] [place] [address] * CYCLIC CITRULLINATED PEPTIDE(CCP) AB IGG (04/12/2024 12:05 PM INDUSTRIAL ENGINEERING INTERN) Pathologist [facility] Cyclic Citrullinated Peptide Antibody IgG <16 UNITS [facility] Comment: Reference Range Negative: <20 Weak Positive: 20-39 Moderate Positive: 40-59 Strong Positive: >59 Test Performed at: [facility] [id number] [facility] [place] [address] LORNA HOLLEY MD Blood BLOOD SPECIMEN / Unknown 04/12/2024 12:05 PM INDUSTRIAL ENGINEERING INTERN 04/12/2024 12:06 PM INDUSTRIAL ENGINEERING INTERN Tamika George MD LAB - CHEMISTRY ORDE RABEFRAIN Performing Organization Address City/[facility]/ZIP Co de Phone Number [facility] [address] [place] [address] * ERYTHROCYTE SEDIMENTATION RATE (04/12/2024 12:05 PM INDUSTRIAL ENGINEERING INTERN) Pathologist [facility] Erythrocyte Sedimentation Rate Westergren 11 < OR = 30 mm/h [facility] Comment: Test Performed at: [facility] [address] [address] LORNA HOLLEY MD Blood BLOOD SPECIMEN / Unknown 04/12/2024 12:05 PM INDUSTRIAL ENGINEERING INTERN 04/12/2024 12:06 PM INDUSTRIAL ENGINEERING INTERN Tamika George MD LAB - HEMATOLOGY ORD ERABLES Performing Organization Address [facility] Co de Phone Number [facility] [address] [place] [address] * (ABNORMAL) CBC WITH DIFFERENTIAL (04/12/2024 12:05 PM INDUSTRIAL ENGINEERING INTERN) [facility] White Blood Cell Count 11.3(H) 3.8 - 10.8 Thousand/u L [facility] RBC 4.20 3.80 - 5.10 Million/uL [facility] Hemoglobin 13.8 11.7 - 15.5 g/dL [facility] Hematocrit 41.0 35.0 - 45.0 % [facility] MCV 97.6 80.0 - 100.0 fL [facility] MCH 32.9 27.0 - 33.0 pg [facility] MCHC 33.7 32.0 - 36.0 g/dL [facility] Comment: For adults, a slight decrease in the calculated MCHC value (in the range of 30 to 32 g/dL) is most likely not clinically significant; however, it should be interpreted with caution in correlation with other red cell parameters and the patient's clinical condition. RDW 13.6 11.0 - 15.0 % [facility] Platelet Count 379 140 - 400 Thousand/u L [facility] MPV 10.6 7.5 - 12.5 fL [facility] Neutrophil Absolute 4283 1500 - 7800 cells/uL [facility] Lymphocytes Absolute 5548(H) 850 - 3900 cells/uL [facility] Absolute Monocytes 1266(H) 200 - 950 cells/uL [facility] Eosinophils Absolute 79 15 - 500 cells/uL [facility] Basophils Absolute 124 0 - 200 cells/uL [facility] Granulocytes % 37.9 % [facility] Lymphocytes % 49.1 % [facility] Monocytes % 11.2 % [facility] Eosinophils % 0.7 % [facility] Basophils % 1.1 % [facility] Comment: Test Performed at: [place] [address] LORNA HOLLEY MD Blood BLOOD SPECIMEN / Unknown 04/12/2024 12:05 PM INDUSTRIAL ENGINEERING INTERN 04/12/2024 12:06 PM INDUSTRIAL ENGINEERING INTERN Tamika George MD LAB - HEMATOLOGY ORD ERABLES Performing Organization Address [facility] Co de Phone Number [facility] [phone] [place] [address] * COMPLEMENT C4 (04/12/2024 12:05 PM INDUSTRIAL ENGINEERING INTERN) Complement C4 36 15 - 57 mg/dL [facility] Comment: Test Performed at: [facility] [id number] [address] [facility] [place] [address] LORNA HOLLEY MD Blood BLOOD SPECIMEN / Unknown 04/12/2024 12:05 PM INDUSTRIAL ENGINEERING INTERN 04/12/2024 12:06 PM INDUSTRIAL ENGINEERING INTERN Tamika George MD LAB - SEROLOGY ORDER DEEPTI Performing Organization Address [facility] [place] [address] * (ABNORMAL) PROTEIN CREATININE RATIO URINE RANDOM PNL (04/12/2024 12:05 PM INDUSTRIAL ENGINEERING INTERN) Creatinine Urine 41 20 - 275 mg/dL [facility] Protein/Creatini ne Ratio 98 24 - 184 mg/g creat [facility] Protein/Creatini ne Ratio 0.098 0.024 - 0.184 mg/mg creat [facility] Protein Random Urine 4(L) 5 - 24 mg/dL [facility] Comment: Verified by repeat analysis. Test Performed at: [place] [address] LORNA HOLLEY MD Urine URINE SPECIMEN OBTAINED BY CLEAN CATCH PROCEDURE / Unknown 04/12/2024 12:05 PM INDUSTRIAL ENGINEERING INTERN 04/12/2024 12:06 PM INDUSTRIAL ENGINEERING INTERN Tamika George MD LAB - URINE CHEMISTR Y ORDERABLES Performing Organization Address [facility] Co de Phone Number [facility] [address] [place] [address] * HEPATITIS B SURFACE ANTIGEN W RFLX CONFIRMATION (04/12/2024 12:05 PM INDUSTRIAL ENGINEERING INTERN) Pathologist [facility] Hepatitis B Virus Surface Antigen NON-REACT PRASHANTH NON-REACT PRASHANTH [facility] Comment: For additional information, please refer to http://education.Camperoo/faq/BEW341 (This link is being provided for informational/ educational purposes only.) Test Performed at: [facility] [place] [id number] LORNA HOLLEY MD Confirmation [facility] Comment: Test Performed at: [employer] [facility], [place] [id number] LORNA HOLLEY MD Blood BLOOD SPECIMEN / Unknown 04/12/2024 12:05 PM INDUSTRIAL ENGINEERING INTERN 04/12/2024 12:06 PM INDUSTRIAL ENGINEERING INTERN Tamika George MD LAB - CHEMISTRY CARI DELGADO Performing Organization Address [facility] Co de Phone Number [facility] [phone] [place] [address] * CREATININE BLOOD (04/12/2024 12:05 PM INDUSTRIAL ENGINEERING INTERN) [facility] Creatinine 0.76 0.50 - 1.03 mg/dL [facility] eGFR by Cystatin C 92 > OR = 60 mL/min/1.7 3m2 [facility] Comment: Test Performed at: [facility], [place] [address] LORNA HOLLEY MD Blood BLOOD SPECIMEN / Unknown 04/12/2024 12:05 PM INDUSTRIAL ENGINEERING INTERN 04/12/2024 12:06 PM INDUSTRIAL ENGINEERING INTERN Tamika George MD LAB - CHEMISTRY CARI DELGADO Performing Organization Address City/[facility] Co de Phone Number [facility] [address] [place] [address] * CK BLOOD (04/12/2024 12:05 PM INDUSTRIAL ENGINEERING INTERN) Pathologist [facility] CK 80 29 - 143 U/L [facility] Comment: Test Performed at: [facility] [place] [address] [place] [address] LORNA HOLLEY MD Blood BLOOD SPECIMEN / Unknown 04/12/2024 12:05 PM INDUSTRIAL ENGINEERING INTERN 04/12/2024 12:06 PM INDUSTRIAL ENGINEERING INTERN Tamika George MD LAB - CHEMISTRY CARI DELGADO Performing Organization Address [facility] [place] [address] * CALCIUM IONIZED BLOOD (04/12/2024 12:05 PM INDUSTRIAL ENGINEERING INTERN) [facility] Calcium Ionized 4.9 4.7 - 5.5 mg/dL [facility] Comment: Test Performed at: [facility] [place] [address] [facility] [place] [address] LORNA HOLLEY MD Blood BLOOD SPECIMEN / Unknown 04/12/2024 12:05 PM INDUSTRIAL ENGINEERING INTERN 04/12/2024 12:06 PM INDUSTRIAL ENGINEERING INTERN Tamika George MD LAB - CHEMISTRY CARI DELGADO Performing Organization Address [facility] [place] [address] * (ABNORMAL) LIPID PROFILE (LIPID PANEL) (04/12/2024 12:05 PM INDUSTRIAL ENGINEERING INTERN) [facility] Cholesterol 136 <200 mg/dL [facility] HDL Cholesterol 46(L) > OR = 50 mg/dL [facility] Triglycerides 107 <150 mg/dL [facility] LDL Calculated 71 mg/dL (calc) [facility] Comment: Reference range: <100 Desirable range <100 mg/dL for primary prevention; <70 mg/dL for patients with CHD or diabetic patients with > or = 2 CHD risk factors. LDL-C is now calculated using the Dusty calculation, which is a validated novel method providing better accuracy than the Friedewald equation in the estimation of LDL-C. Bravo JACKSON et al. ANTIONE. 2013;310(19): 6154-8985 (http://education.[employer].com/faq/FOB258) CHOL/HDLC RATIO 3.0 <5.0 (calc) [facility] Non HDL Cholesterol 90 <130 mg/dL (calc) [facility] Comment: For patients with diabetes plus 1 major ASCVD risk factor, treating to a non-HDL-C goal of <100 mg/dL (LDL-C of <70 mg/dL) is considered a therapeutic option. Test Performed at: [facility] [address] [place] [address] LORNA HOLLEY MD Blood BLOOD SPECIMEN / Unknown 04/12/2024 12:05 PM INDUSTRIAL ENGINEERING INTERN 04/12/2024 12:06 PM INDUSTRIAL ENGINEERING INTERN Tamika George MD LAB - CHEMISTRY CARI DELGADO [facility] [address] [place] [address] * COMPLEMENT C3 (04/12/2024 12:05 PM INDUSTRIAL ENGINEERING INTERN) Complement C3 147 83 - 193 mg/dL [facility] Comment: Test Performed at: [facility] [address] [place] [address] LORNA HOLLEY MD Blood BLOOD SPECIMEN / Unknown 04/12/2024 12:05 PM INDUSTRIAL ENGINEERING INTERN 04/12/2024 12:06 PM INDUSTRIAL ENGINEERING INTERN Tamika George MD LAB - CHEMISTRY CARI DELGADO [facility] [address] [place] [address] from Last 3 Months Care Teams Horse Race Timer Relationship Specialty Start Date End Date Stephanie Faustin, LEAD ELECTRICAL CONTROLS ENGINEER-JUTE BAG CLIPPER [address] [place] [address] [place] Pugh [id number] PCP - General Nurse Practitioner Family 06/27/24
--- OUTSIDE RECORDS SUMMARY | 2024-07-12 13:39 | XMS_ITS | Clinical Summary ---
Author Organization [facility] Address [address] [place] [address] Care Team Providers Care Field Rep Name Role Phone RaminStephanie Elba [facility] Primary Care Provider + Source Comments [facility],non-owned Affiliates and Associated Physician Practices is amultiple site organization consisting of ambulatory clinics and hospital sitesin [place], [place], [place] and [place]. This disclosure is being madepursuant to the Care Everywhere program and may not contain all information available regarding this patient. Last updated 18.[facility] Allergies Active Allergy Reactions Criticality Noted Date [...] Complete) Active Problems No known active problems Encounters Date Type Department Care Team Description 07/05/2024 Orders Only [address] [address] Joey Canela MD 07/04/[address] [address] Joey Canela MD [facility] 06/27/2024 12:50 PM TESTING SHAKING [employer]PING Office Visit [address] [address] Joey Canela MD Leukocytosis, unspecified type (Primary Dx); Tobacco abuse 05/11/2024 Orders Only [facility] - Rheumatology [address] [place] [address], [address] [phone] Tamika George MD Positive RENO (antinuclear antibody); Leukocytosis, unspecified type 05/02/2024 Telephone [facility] - Rheumatology [address] [place] [address], [address] [phone] Tamika George MD Order 04/25/2024 11:20 AM TESTING SHAKING SHIPPING Office Visit [facility] - Rheumatology [address] [place] [address], [address] [phone] Tamika George MD Positive RENO (antinuclear antibody) (Primary Dx); Polyarthralgia; Myalgia, multiple sites; Other fatigue; Dry mouth; Numbness; Other low back pain; Leukocytosis, unspecified type from Last 3 Months Social History Tobacco Use Types Packs/Day Years [...] Comments Blood Pressure 122/72 06/27/2024 1:02 PM TESTING [employer]AKING [employer]PING Pulse 104 06/27/2024 1:02 PM TESTING [employer]AKING [employer]PING Temperature 36.7 C (98.1 F) 06/27/2024 1:02 PM TESTING [employer]ING [employer]PING Respiratory Rate - - Oxygen Saturation 100% 06/27/2024 1:02 PM TESTING [employer]AKING [employer]PING Inhaled Oxygen Concentration - - Weight 68.8 kg (151 lb 12 oz) 06/27/2024 1:02 PM TESTING SHAKING SHIPPING Height 170.2 cm (5' 7 ) 06/27/2024 1:02 PM TESTING SHAKING SHIPPING Body Mass Index 23.77 06/27/2024 1:02 PM TESTING SHAKING SHIPPING Plan of Treatment Upcoming Encounters Date Type Department Care Team (Late st Contact Info) Description 12/26/2024 2:00 PM CDT Documentation [address] [address] 12/26/2024 2:10 PM CDT Office Visit [address] [address] Joey Canela MD [address] [place] [phone] Health Maintenance Due Date Last Done Comments COLOGUARD (AGES 45-75) - COL ON CA SCREENING 1969 COLON MONITORING 1969 COLONOSCOPY - COLON CA SCREENING 1969 CT COLONOGRAPHY - COLON CA SCREENING 1969 Colorectal Cancer Screening 1969 FIT - COLON CA SCREENING 1969 FLEX SIG - COLON CA SCREENING 1969 MAMMOGRAM 1969 PAP SMEAR 1969 HIV SCREENING 01/11/1984 DTAP/TDAP/TD VACCINES (1 - Tdap) 01/11/1988 HEPATITIS B VACCINE (1 of 3 - 19+ 3-dose series) 01/11/1988 PNEUMOCOCCAL VACCINE 50+ (1 of 2 - PCV) 01/11/1988 ZOSTER VACCINE (1 of 2) 2019 COVID-19 VACCINE (1 - 2023-2 5 season) 2024 INFLUENZA VACCINE (#1) 2024 MEDICARE AWV CALENDAR YEAR 2024 HEPATITIS C SCREENING Completed 04/12/2024 DEPRESSION SCREENING Completed 06/27/2024 HIB VACCINE Aged Out No longer eligi ble based on patient's age to complete this topic HPV VACCINE Aged Out No longer eligi ble based on patient's age to complete this topic MENINGOCOCCAL (Group B) VACCINE Aged Out No longer eligible based on patient's age to complete this topic MENINGOCOCCAL VACCINE Aged Out No vikki nevaeh eligible based on patient's age to complete this topic Procedures Procedure Name Priority Date/Time Associated Diagnosis Comments TSH HI LOW REFLEX FREE T4 Routine 06/27/2024 3:44 PM TESTING [employer]AKING [employer]PING Leukocytosis, unspecified type CBC W AUTO DIFFERENTIAL (CANCER CARE) Routine 06/27/2024 1:46 PM TESTING SHAKING SHIPPING Leukocytosis, unspecified type XR CHEST 2VW Routine 05/08/2024 Positive RENO (antinuclear antibody) Leukocytosis, unspecified type SS-A/SS-B (SJOGREN'S) ANTIBODY PANEL Routine 04/12/2024 12:08 PM TESTING SHAKING SHIPPING Positive RENO (antinuclear antibody) Polyarthralgia Myalgia, multiple sites Other fatigue Dry mouth Numbness Other low back pain OLSON (SM) ANTIBODY UBALDO Routine 04/12/20 12:08 PM TESTING SHAKING SHIPPING Positive RENO (antinuclear antibody) Polyarthralgia Myalgia, multiple sites Other fatigue Dry mouth Numbness Other low back pain SCLERODERMA 70 (SCL) ANTIBODY Routine 04/12/2024 12:08 PM TESTING SHAKING SHIPPING Positive RENO (antinuclear antibody) Polyarthralgia Myalgia, multiple sites Other fatigue Dry mouth Numbness Other low back pain PRODUCTION POSTING CLERK ANTIBODY Routine 04/12/2024 12:08 PM TESTING SHAKING SHIPPING Positive RENO (antinuclear antibody) Polyarthralgia Myalgia, multiple sites Other fatigue Dry mouth Numbness Other low back pain RENO BLOOD SCREEN W/REFLEX TITER Routine 04/12/2024 12:08 PM TESTING SHAKING SHIPPING Positive RENO (antinuclear antibody) Polyarthralgia Myalgia, multiple sites Other fatigue Dry mouth Numbness Other low back pain LIPID PROFILE Routine 04/12/2024 12:05 PM TESTING SHAKING SHIPPING Hyperlipidemia, unspecified hyperlipidemia type SCLEROSIS 12 ANTIBODY PNL Routine 04/12/2024 12:05 PM TESTING SHAKING SHIPPING Positive RENO (antinuclear antibody) Polyarthralgia Myalgia, multiple sites Other fatigue Dry mouth Numbness Other low back pain PROTEIN CREATININE RATIO URINE RANDOM PNL Routine 04/12/2024 12:05 PM TESTING SHAKING SHIPPING Positive RENO (antinuclear antibody) Polyarthralgia Myalgia, multiple sites Other fatigue Dry mouth Numbness Other low back pain THIOPURINE METHYLTRANSFERASE Routine 04/12/2024 12:05 PM TESTING SHAKING SHIPPING Positive RENO (antinuclear antibody) Polyarthralgia Myalgia, multiple sites Other fatigue Dry mouth Numbness Other low back pain DNA ANTIBODY DS CRITHIDIA W/REFLEX TITER Routine 04/12/2024 12:05 PM TESTING SHAKING SHIPPING Positive RENO (antinuclear antibody) Polyarthralgia Myalgia, multiple sites Other fatigue Dry mouth Numbness Other low back pain RHEUMATOID FACTOR BLOOD QUANTITATIVE Routine 04/12/2024 12:05 PM TESTING SHAKING SHIPPING Positive RENO (antinuclear antibody) Polyarthralgia Myalgia, multiple sites Other fatigue Dry mouth Numbness Other low back pain CALCIUM IONIZED BLOOD Routine 04/12/2024 12:05 PM TESTING SHAKING SHIPPING Positive RENO (antinuclear antibody) Polyarthralgia Myalgia, multiple sites Other fatigue Dry mouth Numbness Other low back pain HEPATITIS C AB W/RFLX TO HCV RNA QN PCR Routine 04/12/2024 12:05 PM TESTING SHAKING SHIPPING Positive RENO (antinuclear antibody) Polyarthralgia Myalgia, multiple sites Other fatigue Dry mouth Numbness Other low back pain HEPATITIS B SURFACE ANTIGEN W RFLX CONFIRMATION Routine 04/12/2024 12:05 PM TESTING SHAKING SHIPPING Positive RENO (antinuclear antibody) Polyarthralgia Myalgia, multiple sites Other fatigue Dry mouth Numbness Other low back pain HEPATITIS B CORE ANTIBODY REFLEX IGM Routine 04/12/2024 12:05 PM TESTING SHAKING SHIPPING Positive RENO (antinuclear antibody) Polyarthralgia Myalgia, multiple sites Other fatigue Dry mouth Numbness Other low back pain URINALYSIS W/MICROSCOPIC NO CULTURE Routine 04/12/2024 12:05 PM TESTING SHAKING SHIPPING Positive RENO (antinuclear antibody) Polyarthralgia Myalgia, multiple sites Other fatigue Dry mouth Numbness Other low back pain ERYTHROCYTE SEDIMENTATION RATE Routine 04/12/2024 12:05 PM TESTING SHAKING SHIPPING Positive RENO (antinuclear antibody) Polyarthralgia Myalgia, multiple sites Other fatigue Dry mouth Numbness Other low back pain CYCLIC CITRULLINATED PEPTIDE(CCP) AB IGG Routine 04/12/2024 12:05 PM TESTING SHAKING SHIPPING Positive RENO (antinuclear antibody) Polyarthralgia Myalgia, multiple sites Other fatigue Dry mouth Numbness Other low back pain CREATININE BLOOD Routine 04/12/2024 12:0 5 PM TESTING SHAKING SHIPPING Positive RENO (antinuclear antibody) Polyarthralgia Myalgia, multiple sites Other fatigue Dry mouth Numbness Other low back pain C-REACTIVE PROTEIN Routine 04/12/2024 12 :05 PM TESTING SHAKING SHIPPING Positive RENO (antinuclear antibody) Polyarthralgia Myalgia, multiple sites Other fatigue Dry mouth Numbness Other low back pain COMPLEMENT C4 Routine 04/12/2024 12:05 PM TESTING SHAKING SHIPPING Positive RENO (antinuclear antibody) Polyarthralgia Myalgia, multiple sites Other fatigue Dry mouth Numbness Other low back pain COMPLEMENT C3 Routine 04/12/2024 12:05 PM TESTING SHAKING SHIPPING Positive RENO (antinuclear antibody) Polyarthralgia Myalgia, multiple sites Other fatigue Dry mouth Numbness Other low back pain CK BLOOD Routine 04/12/2024 12:05 PM TESTING SHAKING SHIPPING Positive RENO (antinuclear antibody) Polyarthralgia Myalgia, multiple sites Other fatigue Dry mouth Numbness Other low back pain CBC W AUTO DIFFERENTIAL Routine 04/12/20 24 12:05 PM TESTING [employer]AKING SHIPPING Positive RENO (antinuclear antibody) Polyarthralgia Myalgia, multiple sites Other fatigue Dry mouth Numbness Other low back pain LUPUS ANTICOAGULANT PANEL W RFLX Routine 04/12/2024 12:05 PM TESTING [employer]AKING SHIPPING Positive RENO (antinuclear antibody) Polyarthralgia Myalgia, multiple sites Other fatigue Dry mouth Numbness Other low back pain CARDIOLIPIN ANTIBODY IGA/IGG/IGM PANEL Routine 04/12/2024 12:05 PM TESTING [employer]AK[employer]IPPING Positive RENO (antinuclear antibody) Polyarthralgia Myalgia, multiple sites Other fatigue Dry mouth Numbness Other low back pain BETA-2 GLYCOPROTEIN 1 ANTIBODY IGG/IGM/IGA PANEL Routine 04/12/2024 12:05 PM TESTING [employer]AKING SHIPPING Positive RENO (antinuclear antibody) Polyarthralgia Myalgia, multiple sites Other fatigue Dry mouth Numbness Other low back pain ANGIOTENSIN CONVERTING ENZYME BLOOD Routine 04/12/2024 12:05 PM TESTING SHAKING SHIPPING Positive RENO (antinuclear antibody) Polyarthralgia Myalgia, multiple sites Other fatigue Dry mouth Numbness Other low back pain ALDOLASE Routine 04/12/2024 12:05 PM TESTING SHAKING SHIPPING Positive RENO (antinuclear antibody) Polyarthralgia Myalgia, multiple sites Other fatigue Dry mouth Numbness Other low back pain from Last 3 Months Results * TSH HI LOW REFLEX FREE T4 (06/27/2024 3:44 PM TESTING [employer]PING) TSH 1.778 0.350 - 4.940 uIU/mL [facility] INSURANCE BILL Blood BLOOD SPECIMEN / Unknown 06/27/2024 3:44 PM TESTING [employer]PING 06/27/2024 Comment:Blood Release to pat i Narrative [facility] INSURANCE BILL - 06/27/2024 11:06 PM [employer]ING [employer] Performed at: [address] [place] [id number] Division Plant Engineer: Daryn Ruffin MD, Phone: [phone] Joey Canela MD LAB - CHEMISTRY CARI DELGADO [facility] INSURANCE BILL [address] [place] [address] * (ABNORMAL) CBC W AUTO DIFFERENTIAL (CANCER CARE) (06/27/2024 1:46 PM TESTING [employer]ING [employer]PING) Pathologist [facility] WBC 9.6 4.4 - 10.7 x10E9/L 06/27/2024 2:09 PM TESTING SHAKING SH[employer]PING [facility] Neutrophils % 37.1(L) 44.0 - 73.0 % 06/27/2024 2:09 PM TESTING SHAKING SHIPPING [facility] Lymphocytes % 50.8(H) 20.0 - 43.0 % 06/27/2024 2:09 PM TESTING SHAKING SHIPPING [facility] Monocytes % 9.9 5.0 - 13.0 % 06/27/2024 2:09 PM TESTING [employer]AKING SHIPPING [facility] Eosinophils % 0.5 0.0 - 6.0 % 06/27/2024 2:09 PM TESTING [employer]AK[employer] SH[employer]PING [facility] Basophils % 1.1 0.0 - 2.0 % 06/27/2024 2:09 PM TESTING [employer]AK[employer] [facility] Immature Granulocytes 0.6 <=1 % 06/27/2024 2:09 PM TEST[employer] [facility] Neutrophil Absolute 3.55 2.01 - 7.14 x10E9/L 06/27/2024 2:09 PM TESTING [employer]AK[employer]PING [facility] Lymphocytes Absolute 4.88(H) 1.07 - 3.94 x10E9/L 06/27/2024 2:09 PM TESTING SHAKING SHIPPING [facility] Monocytes Absolute 0.95 0.26 - 1.07 x10E9/L 06/27/2024 2:09 PM TESTING SHAKING SHIPPING [facility] Eosinophils Absolute 0.05 0 - 0.47 x10E9/L 06/27/2024 2:[address] [facility] Basophils Absolute 0.11(H) 0 - 0.08 x10E9/L 06/27/2024 2:[address] [facility] RBC 4.30 3.80 - 5.20 x10E12/L 06/27/2024 2:09 PM TESTING [employer]AK[employer]PING [facility] Hemoglobin 14.0 12.0 - 15.6 gm/dL 06/27/2024 2:09 [address] [facility] Hematocrit 41.0 35.9 - 45.5 % 06/27/2024 2:09 [address] [facility] MCV 95.3 80.7 - 98.3 fl 06/27/2024 2:09 [address] [facility] MCH 32.6 26.7 - 34.0 pg 06/27/2024 2:09 [address] [facility] MCHC 34.1 30.8 - 35.9 gm/dL 06/27/2024 2:09 [address] [facility] RDW-CV 14.2 12.1 - 14.9 % 06/27/2024 2:09 [address] [employer] [facility] Platelet Count 352 153 - 416 x10E9/L 06/27/2024 2:09 [address] [facility] MPV 9.0(L) 9.4 - 12.9 fl 06/27/2024 2:[address] [facility] NRBC 0.0 <=0 /100 WBC 06/27/2024 2:[address] [facility] Blood BLOOD SPECIMEN / Unknown 06/27/2024 1:46 PM [employer] 06/27/2024 1:46 PM TESTING [employer]AK[employer]PING Joey Canela MD LAB - HEMATOLOGY ORD ERABLES [facility] [address] [place] [address], [facility] * XR Chest 2Vw (05/08/2024) Anatomical Region Laterality Modality Chest Other Tamika George MD DIAGNOSTIC IMAGING O RDERABLES * OLSON (SM) ANTIBODY UBALDO (04/12/2024 12:08 PM TESTING [employer]) SM Antibody <1.0 NEG <1.0 NEG [facility] Comment: Test Performed at: [facility] [id number] [place] [address] LORNA HOLLEY MD Blood BLOOD SPECIMEN / Unknown 04/12/2024 12:08 PM [employer] 04/12/2024 12:08 PM TESTING [employer]AK[employer] Tamika George MD LAB - CHEMISTRY CARI DELGADO Performing Organization Address [facility] Co de Phone Number [facility] [id number] [place] [address] * PRODUCTION POSTING CLERK ANTIBODY (04/12/2024 12:08 PM TESTING [employer]PING) Pathologist [facility] PRODUCTION POSTING CLERK Antibody <1.0 NEG <1.0 NEG AI [facility] Comment: Test Performed at: [facility] [address] [place] [address] LORNA HOLLEY MD Blood BLOOD SPECIMEN / Unknown 04/12/2024 12:08 PM TESTING [employer]AK[employer]IPPING 04/12/2024 12:08 PM TESTING [employer]AK[employer] Tamika George MD LAB - CHEMISTRY CARI DELGADO Performing Organization Address [facility] Co de Phone Number [facility] [phone] [place] [address] * RENO BLOOD SCREEN W/REFLEX TITER (04/12/2024 12:08 PM TESTING [employer]PING) RENO Screen NEGATIVE NEGATIVE [facility] Comment: RENO [...] AC-0: Negative International Consensus on RENO Patterns (https://doi.org/10.1515/ojzp-1761-7182) For additional information, please refer to http://education.[employer]/faq/FYL074 (This link is being provided for informational/ educational purposes only.) Test Performed at: [facility] [place] [address] LORNA HOLLEY MD Blood BLOOD SPECIMEN / Unknown 04/12/2024 12:08 PM TESTING [employer]AK[employer]PING 04/12/2024 12:08 PM TESTING [employer]PING Tamika George MD LAB - CHEMISTRY CARI DELGADO Performing Organization Address [facility] [place] [place] [address] * SS-A/SS-B (SJOGREN'S) ANTIBODY PANEL (04/12/2024 12:08 PM TESTING [employer]IPPING) Sjogren's Antibodies (SSA) <1.0 NEG <1.0 NEG AI [facility] Sjogren's Antibodies (SSB) <1.0 NEG <1.0 NEG AI [facility] Comment: Test Performed at: [facility] [place] [address] LORNA HOLLEY MD Blood BLOOD SPECIMEN / Unknown 04/12/2024 12:08 PM TESTING [employer]AK[employer]PING 04/12/2024 12:08 PM TESTING [employer]PING Tamika George MD LAB - CHEMISTRY CARI DELGADO Performing Organization Address [facility] [place] [place] [address] * SCLERODERMA 70 (SCL) ANTIBODY (04/12/2024 12:08 PM TESTING [employer]PING) SCL-70 Antibody <1.0 NEG <1.0 NEG AI [facility] Comment: Test Performed at: [facility] [place] [address] LORNA HOLLEY MD Blood BLOOD SPECIMEN / Unknown 04/12/2024 12:08 PM TESTING [employer]AK[employer]PING 04/12/2024 12:08 PM TESTING [employer]AK[employer] SHIPPING Tamika George MD LAB - CHEMISTRY CARI Tuttle Organization Address City/State/ZIP Co de Phone Number [facility] [address] [place] [address] * (ABNORMAL) SCLEROSIS 12 ANTIBODY PNL (04/12/2024 12:05 PM TESTING [employer]AKING SHIPPING) SCL-70 <11 <11 SI [facility] Centromere protein [...] 75 <11 <11 SI [facility] Comment: The [place] [employer] (ACR) considers anti-Scl-70 (also [...] patients and anti-RP155 antibodies in about 8%. Ulsn-A1-akULZ antibodies are associated with SSc and inflammatory myopathy overlap syndromes. Three major components of U1-snRNP are tested: U1-snRNP PRODUCTION POSTING CLERK A, U1-snRNP PRODUCTION POSTING CLERK C, U1-snRNP [id number]. The presence of U1-snRNP antibodies occur in [...] Fibrillarin antibodies are found more frequently in -[place] patients and when seen in this population, [...] is directed to one of two proteins: PM/Xtd739 and/or PM/Scl75. More information can be found at https://[email or web address].[employer]/testcenter/testguide.action ?dc=CF-SystScler This test was developed and its analytical performance characteristics have been determined by [employer]. It has not been cleared or approved by FDA. This assay has been validated pursuant to the CLIA regulations and is used for clinical purposes. Test Performed at: [facility] [address] [place] [address] KISHAN ENCINAS MD,PHD,DELBERT Blood BLOOD SPECIMEN / Unknown 04/12/2024 12:05 PM TESTING [employer] 04/12/2024 12:06 PM TESTING [employer]AK[employer]PING Tamika George MD LAB - SEROLOGY ORDER DEEPTI [facility] [address] [place] [address] * HEPATITIS C AB W/RFLX TO HCV RNA QN PCR (04/12/2024 12:05 PM TESTING [employer]PING) Hepatitis C Antibody NON-REACTI VE NON-REACT PRASHANTH [facility] Comment: HCV antibody was non-reactive. There is no laboratory evidence of HCV infection. In most cases, no further action is required. However, if recent HCV exposure is suspected, a test for HCV RNA (test code 63579) is suggested. For additional information please refer to http://education.K[employer]/faq/DFF12v7 (This link is being provided for informational/ educational purposes only.) Test Performed at: [facility] [address] [place] [address] LORNA HOLLEY MD Blood BLOOD SPECIMEN / Unknown 04/12/2024 12:05 PM TESTING [employer]AK[employer] SHIPPING 04/12/2024 12:06 PM TESTING SHAK[employer]PING Tamika George MD LAB - CHEMISTRY ORDE DANNY Performing Organization Address [facility]/ZIP Co de Phone Number [facility] [address] [place] [address] * DNA ANTIBODY DS CRITHIDIA W/REFLEX TITER (04/12/2024 12:05 PM TESTING [employer]IPPING) dsDNA Antibody Crithidia IFA NEGATIVE NEGATIVE [facility] Comment: Test Performed at: [facility] [address] [place] [address] KISHAN ENCINAS MD,PHD,DELBERT Blood BLOOD SPECIMEN / Unknown 04/12/2024 12:05 PM TESTING [employer]AKING SHIPPING 04/12/2024 12:06 PM TESTING SHAKING SHIPPING Tamika George MD LAB - HEMATOLOGY ORD ERABLES Performing Organization Address [facility]/ZIP Co de Phone Number [facility] [address] [place] [address] * URINALYSIS W/MICROSCOPIC NO CULTURE (04/12/2024 12:05 PM TESTING [employer]) Color UA YELLOW YELLOW [facility] Appearance CLEAR CLEAR [facility] Specific [place] UA 1.008 1.001 - 1.035 [facility] pH [...] SEEN /LPF [facility] Comment: Test Performed at: [facility] [address] LORNA HOLLEY MD Granular Casts [facility] Casts UA [facility] Yeast [facility] Comments [facility] Note [facility] Comment: Test Performed at: [facility] [place] [address] LORNA HOLLEY MD Urine URINE SPECIMEN OBTAINED BY CLEAN CATCH PROCEDURE / Unknown 04/12/2024 12:05 PM TESTING [employer]PING 04/12/2024 12:06 PM TESTING [employer]AKING SHIPPING Tamika George MD LAB - URINALYSIS ORD ERABLES Performing Organization Address [facility] Co de Phone Number [facility] [address] [place] [address] * HEPATITIS B CORE ANTIBODY REFLEX IGM (04/12/2024 12:05 PM TESTING [employer]PING) Hepatitis B Core Virus Antibody Total NON-REACTI VE NON-REACT PRASHANTH [facility] Comment: For additional information, please refer to http://education.Premise.[employer]/faq/OWN948 (This link is being provided for informational/ educational purposes only.) Test Performed at: [facility] [place] [address] LORNA HOLLEY MD Blood BLOOD SPECIMEN / Unknown 04/12/2024 12:05 PM TESTING [employer]AKING SHIPPING 04/12/2024 12:06 PM TESTING [employer]ING [employer]IPPING Tamika George MD LAB - SEROLOGY ORDER DEEPTI Performing Organization Address [facility] Co de Phone Number [facility] [address] [place] [address] * CARDIOLIPIN ANTIBODY IGA/IGG/IGM PANEL (04/12/2024 12:05 PM TESTING [employer]PING) Pathologist [facility] Cardiolipin Antibody IgA <2.0 APL-U/mL [facility] Comment: Value Interpretation ----- < 20.0 Antibody not detected > or = 20.0 Antibody detected Cardiolipin Antibody IgG <2.0 GPL-U/mL [facility] Comment: Value Interpretation ----- < 20.0 Antibody not detected > or = 20.0 Antibody detected Cardiolipin Antibody IgM <2.0 MPL-U/mL [facility] Comment: Value Interpretation ----- < 20.0 Antibody [...] aging. For additional information, please refer to http://education.Premise[employer]/faq/GDW247 (This link is being provided for informational/ educational purposes only.) Test Performed at: [facility] [address] [address] NEREYDA [place] Blood BLOOD SPECIMEN / Unknown 04/12/2024 12:05 PM TESTING [employer]AKING SHIPPING 04/12/2024 12:06 PM TESTING SHAKING SHIPPING Tamika George MD LAB - SEROLOGY ORDER DEEPTI [facility] [address] [place] [address] * LUPUS ANTICOAGULANT PANEL W RFLX (04/12/2024 12:05 PM TESTING [employer]AKING SHIPPING) Pathologist [facility] Lupus Anticoagulant NOT DETECTED [facility] Comment: A Lupus Anticoagulant is not detected. For more information on this test, go to: http://education.Kaleidoscope/faq/JMY44f7 (This link is being provided for informational/ educational purposes only.) This interpretation is based on the following test results: PTT LA Screen 34 < OR = 40 sec [facility] dRVVT Screen 45 < OR = 45 sec [facility] Comment: Test Performed at: [facility] [address] [address] NEREYDA [place] Blood BLOOD SPECIMEN / Unknown 04/12/2024 12:05 PM TESTING [employer]ING SH[employer]PING 04/12/2024 12:06 PM TESTING SHAKING SHIPPING Tamika George MD LAB - HEMATOLOGY ORD ERABLES [facility] [address] [place] [address] * BETA-2 GLYCOPROTEIN 1 ANTIBODY IGG/IGM/IGA PANEL (04/12/2024 12:05 PM TESTING [employer]AKING [employer]IPPING) [facility] Beta-2 Glycoprotein I Antibody IgG <2.0 <20.0 U/mL [facility] Comment: Value Interpretation ----- < 20.0 Antibody not detected > or = 20.0 Antibody detected Beta-2 Glycoprotein I Antibody IgM <2.0 <20.0 U/mL [facility] Comment: Value Interpretation ----- < 20.0 Antibody not detected > or = 20.0 Antibody detected Beta-2 Glycoprotein I Antibody IgA <2.0 <20.0 U/mL [facility] Comment: Value Interpretation [...] aging. For additional information, please refer to http://education.Kaleidoscope/faq/ADU422 (This link is being provided for informational/ educational purposes only.) Test Performed at: [facility] [address] [place] [address] RADHA ROMERO MD,PHD Blood BLOOD SPECIMEN / Unknown 04/12/2024 12:05 PM TESTING SHAKING SHIPPING 04/12/2024 12:06 PM TESTING SHAKING SHIPPING Tamika George MD LAB - SEROLOGY ORDER DEEPTI Performing Organization Address [facility] Co de Phone Number [facility] [phone] [place] [address] * RHEUMATOID FACTOR BLOOD QUANTITATIVE (04/12/2024 12:05 PM TESTING SHAKING SHIPPING) Pathologist [facility] Rheumatoid Factor <10 <14 IU/mL [facility] Comment: Test Performed at: [facility] [address] [place] [address] LORNA HOLLEY MD Blood BLOOD SPECIMEN / Unknown 04/12/2024 12:05 PM TESTING SHAKING SHIPPING 04/12/2024 12:06 PM TESTING SHAKING SHIPPING Tamika George MD LAB - CHEMISTRY ORDE RABEFRAIN Performing Organization Address [facility] Co de Phone Number [address] [address] * C-REACTIVE PROTEIN (04/12/2024 12:05 PM TESTING SHAKING SHIPPING) C-Reactive Protein <3.0 <8.0 mg/L [facility] Comment: Test Performed at: [facility] [id number] [place] [address] LORNA HOLLEY MD Blood BLOOD SPECIMEN / Unknown 04/12/2024 12:05 PM TESTING SHAKING SHIPPING 04/12/2024 12:06 PM TESTING SHAKING SHIPPING Tamika George MD LAB - CHEMISTRY CARI DELGADO Performing Organization Address [facility]/ZIP Co de Phone Number [facility] [phone] [place] [address] * ANGIOTENSIN CONVERTING ENZYME BLOOD (04/12/2024 12:05 PM TESTING SHAKING SHIPPING) Angiotensin-Conv erting Enzyme 52 9 - 67 U/L [facility] Comment: Test Performed at: [facility] [place] [address] [place] [address] LORNA HOLLEY MD Blood BLOOD SPECIMEN / Unknown 04/12/2024 12:05 PM TESTING SHAKING SHIPPING 04/12/2024 12:06 PM TESTING SHAKING SHIPPING Tamika George MD LAB - CHEMISTRY CARI DELGADO Performing Organization Address [facility] Co de Phone Number [facility] [address] [place] [address] * ALDOLASE (04/12/2024 12:05 PM TESTING SHAKING SHIPPING) Aldolase 6.2 < OR = 8.1 U/L [facility] Comment: Test Performed at: [facility] [id number] [place] [address] LORNA HOLLEY MD Blood BLOOD SPECIMEN / Unknown 04/12/2024 12:05 PM TESTING SHAKING SHIPPING 04/12/2024 12:06 PM TESTING SHAKING SHIPPING Tamika George MD LAB - CHEMISTRY CARI DELGADO Performing Organization Address [facility] Co de Phone Number [facility] [phone] [place] [address] * THIOPURINE METHYLTRANSFERASE (04/12/2024 12:05 PM TESTING SHAKING SHIPPING) TPMT Activity 18 nmol/hr/mL RBC [facility] Comment: Reference Range for TPMT Activity: >12 Normal 4-12 Heterozygote or low metabolizer <4 Homozygote Deficient Range This test was developed and its analytical performance characteristics have been determined by [employer]. It has not been cleared or approved by FDA. This assay has been validated pursuant to the CLIA regulations and is used for clinical purposes. Test Performed at: [facility] [address] [place] [address] KISHAN ENCINAS MD,PHD,DELBERT Blood BLOOD SPECIMEN / Unknown 04/12/2024 12:05 PM TESTING SHAKING SHIPPING 04/12/2024 12:06 PM TESTING SHAKING SHIPPING Tamika George MD LAB - CHEMISTRY CARI DELGADO Performing Organization Address [facility] [place] [address] * CYCLIC CITRULLINATED PEPTIDE(CCP) AB IGG (04/12/2024 12:05 PM TESTING SHAKING SHIPPING) Cyclic Citrullinated Peptide Antibody IgG <16 UNITS [facility] Comment: Reference Range Negative: <20 Weak Positive: 20-39 Moderate Positive: 40-59 Strong Positive: >59 Test Performed at: [facility] [address] [place] [address] LORNA HOLLEY MD Blood BLOOD SPECIMEN / Unknown 04/12/2024 12:05 PM TESTING SHAKING SHIPPING 04/12/2024 12:06 PM TESTING SHAKING SHIPPING Tamika George MD LAB - CHEMISTRY CARI DELGADO Performing Organization Address [facility] Co de Phone Number [address] [address] * ERYTHROCYTE SEDIMENTATION RATE (04/12/2024 12:05 PM TESTING SHAKING SHIPPING) Erythrocyte Sedimentation Rate Westergren 11 < OR = 30 mm/h [facility] Comment: Test Performed at: [facility] [address] [place] [address] LORNA HOLLEY MD Blood BLOOD SPECIMEN / Unknown 04/12/2024 12:05 PM TESTING SHAKING SHIPPING 04/12/2024 12:06 PM TESTING SHAKING SHIPPING Tamika George MD LAB - HEMATOLOGY ORD ERABLES Performing Organization Address [facility]/ZIP Co de Phone Number [facility] [address] [place] [phone] * (ABNORMAL) CBC WITH DIFFERENTIAL (04/12/2024 12:05 PM TESTING SHAKING SHIPPING) [facility] White Blood Cell Count 11.3(H) 3.8 - [...] 1.1 % [facility] Comment: Test Performed at: [facility] [address] [place] [address] LORNA HOLLEY MD Blood BLOOD SPECIMEN / Unknown 04/12/2024 12:05 PM TESTING SHAKING SHIPPING 04/12/2024 12:06 PM TESTING SHAKING SHIPPING Tamika George MD LAB - HEMATOLOGY ORD ERABLES Performing Organization Address City/[facility]/ZIP Co de Phone Number [facility] [address] [place] [address] * COMPLEMENT C4 (04/12/2024 12:05 PM TESTING SHAKING SHIPPING) [facility] Complement C4 36 15 - 57 mg/dL [facility] Comment: Test Performed at: [facility] [place] [address] LORNA HOLLEY MD Blood BLOOD SPECIMEN / Unknown 04/12/2024 12:05 PM TESTING SHAKING SHIPPING 04/12/2024 12:06 PM TESTING SHAKING SHIPPING Tamika George MD LAB - SEROLOGY ORDER DEEPTI Performing Organization Address [facility] [place] [address] * (ABNORMAL) PROTEIN CREATININE RATIO URINE RANDOM PNL (04/12/2024 12:05 PM TESTING SHAKING SHIPPING) [facility] Creatinine Urine 41 20 - 275 mg/dL [facility] Protein/Creatini ne Ratio 98 24 - 184 mg/g creat [facility] Protein/Creatini ne Ratio 0.098 0.024 - 0.184 mg/mg creat [facility] Protein Random Urine 4(L) 5 - 24 mg/dL [facility] Comment: Verified by repeat analysis. Test Performed at: [facility] [address] LORNA HOLLEY MD Urine URINE SPECIMEN OBTAINED BY CLEAN CATCH PROCEDURE / Unknown 04/12/2024 12:05 PM TESTING SHAKING SHIPPING 04/12/2024 12:06 PM TESTING SHAKING SHIPPING Tamika George MD LAB - URINE CHEMISTR Y ORDERABLES Performing Organization Address [facility] [place] [address] * HEPATITIS B SURFACE ANTIGEN W RFLX CONFIRMATION (04/12/2024 12:05 PM TESTING SHAKING SHIPPING) [facility] Hepatitis B Virus Surface Antigen NON-REACT PRASHANTH NON-REACT PRASHANTH [facility] Comment: For additional information, please refer to http://education.Kaleidoscope/faq/QWX015 (This link is being provided for informational/ educational purposes only.) Test Performed at: [facility] [address] LORNA HOLLEY MD Confirmation [facility] Comment: Test Performed at: [facility] [address] LORNA HOLLEY MD Blood BLOOD SPECIMEN / Unknown 04/12/2024 12:05 PM TESTING SHAKING SHIPPING 04/12/2024 12:06 PM TESTING SHAKING SHIPPING Tamika George MD LAB - CHEMISTRY CARI DELGADO [facility] [address] [place] [address] * CREATININE BLOOD (04/12/2024 12:05 PM TESTING SHAKING SHIPPING) Creatinine 0.76 0.50 - 1.03 mg/dL [facility] eGFR by Cystatin C 92 > OR = 60 mL/min/1.7 3m2 [facility] Comment: Test Performed at: [facility] [place] [address] LORNA HOLLEY MD Blood BLOOD SPECIMEN / Unknown 04/12/2024 12:05 PM TESTING SHAKING SHIPPING 04/12/2024 12:06 PM TESTING SHAKING SHIPPING Tamika George MD LAB - CHEMISTRY CARI DELGADO [facility] [address] [place] [address] * CK BLOOD (04/12/2024 12:05 PM TESTING SHAKING SHIPPING) CK 80 29 - 143 U/L [facility] Comment: Test Performed at: [place] [address] LORNA HOLLEY MD Blood BLOOD SPECIMEN / Unknown 04/12/2024 12:05 PM TESTING SHAKING SHIPPING 04/12/2024 12:06 PM TESTING SHAKING SHIPPING Tamika George MD LAB - CHEMISTRY CARI DELGADO [facility] [address] [place] [address] * CALCIUM IONIZED BLOOD (04/12/2024 12:05 PM TESTING SHAKING SHIPPING) Calcium Ionized 4.9 4.7 - 5.5 mg/dL [facility] Comment: Test Performed at: [facility] [place] [employer] [address] LORNA HOLLEY MD Blood BLOOD SPECIMEN / Unknown 04/12/2024 12:05 PM TESTING SHAKING SHIPPING 04/12/2024 12:06 PM TESTING SHAKING SHIPPING Tamika George MD LAB - CHEMISTRY CARI DELGADO [facility] [address] [place] [address] * (ABNORMAL) LIPID PROFILE (LIPID PANEL) (04/12/2024 12:05 PM TESTING SHAKING SHIPPING) Cholesterol 136 <200 mg/dL [facility] HDL Cholesterol 46(L) > OR = 50 mg/dL [facility] Triglycerides 107 <150 mg/dL [facility] LDL Calculated 71 mg/dL (calc) [facility] Comment: Reference range: <100 Desirable range <100 mg/dL for primary prevention; <70 mg/dL for patients with CHD or diabetic patients with > or = 2 CHD risk factors. LDL-C is now calculated using the Bravo-Kenny calculation, which is a validated novel method providing better accuracy than the Friedewald equation in the estimation of LDL-C. Bravo SS et al. ANTIONE. 2013;310(19): 9904-6801 (http://education.studdex.[employer]/faq/VUB190) CHOL/HDLC RATIO 3.0 <5.0 (calc) [facility] Non HDL Cholesterol 90 <130 mg/dL (calc) [facility] Comment: For patients with diabetes plus 1 major ASCVD risk factor, treating to a non-HDL-C goal of <100 mg/dL (LDL-C of <70 mg/dL) is considered a therapeutic option. Test Performed at: [facility] [id number] [facility] [place] [address] LORNA HOLLEY MD Blood BLOOD SPECIMEN / Unknown 04/12/2024 12:05 PM TESTING SHAKING SHIPPING 04/12/2024 12:06 PM TESTING SHAKING SHIPPING Tamika George MD LAB - CHEMISTRY CARI DELGADO [facility] [address] [place] [address] * COMPLEMENT C3 (04/12/2024 12:05 PM TESTING SHAKING SHIPPING) Complement C3 147 83 - 193 mg/dL [facility] Comment: Test Performed at: [facility] [place] [address] [address] LORNA HOLLEY MD Blood BLOOD SPECIMEN / Unknown 04/12/2024 12:05 PM TESTING SHAKING SHIPPING 04/12/2024 12:06 PM TESTING SHAKING SHIPPING Tamika George MD LAB - CHEMISTRY CARI DELGADO [facility] [address] [place] [address] from Last 3 Months Care Teams Field Rep Relationship Specialty Start Date End Date Stephanie Faustin, MARKETING [employer] [address] [place] [address] [place] [phone] PCP - General Nurse Practitioner Family 06/27/24
--- OUTSIDE RECORDS SUMMARY | 2024-07-12 13:39 | XMS_ITS | Patient Health Summary ---
Author Organization [facility] Address [address] [place] [address] Care Team Providers Care [employer] Salesperson Name Role Phone Ramin Stephanieelizabeth Arreola APRN-[facility] Primary Care Provider + Note from [facility] [place],non-owned Affiliates and Associated Physician Practices is amultiple site organization consisting of ambulatory clinics and hospital sitesin [place], [place]. This disclosure is being madepursuant to the Care Everywhere program and may not contain all information available regarding this patient. Last updated 18.[facility] Allergies * Codeine(Swelling) -High Criticality * Penicillins(Anaphylaxis) -High Criticality * Tetracycline(Rash) -Medium Criticality Medications * Be aware that medications may not be up to date on this document. Alwaysverify current medications with the patient. * albuterol HFA (Proventil; Ventolin; Proair) 108 (90 Base) MCG/ACT inhaler Take 2 (two) puffs by mouth every 4 hours as needed * doxepin (SINEquan) 150 MG capsule Take 1 (one) capsule by mouth at bedtime * ezetimibe (Zetia) 10 MG tablet Take 1 (one) tablet by mouth once daily * hydrOXYzine pamoate (Vistaril) 25 MG capsule(Started 03/28/2024) Take 1 (one) capsule by mouth 3 times daily * rosuvastatin (Crestor) 40 MG tablet Take 1 (one) tablet by mouth once daily * ibuprofen (Motrin) 600 MG tablet(Started 08/23/2023) * temazepam (Restoril) 30 MG capsule Take 1 (one) capsule by mouth at bedtime * hydroxychloroquine (Plaquenil) 200 MG tablet(Started 04/25/2024) Take 1 (one) tablet by mouth once daily 1 refill by 04/25/2025 * Other Smokes medical marijuana prn for pain Ended Medications* hydrOXYzine pamoate (Vistaril) 50 MG capsule(Discontinued) Take 1 (one) capsule by mouth 3 times daily as needed Active Problems No known active problems Social History Tobacco Use Types Packs/Day Years Used Date Smoking Tobacco: Every Day Cigarettes Smokeless Tobacco: Never Comments:2-1 pack a day PHQ-2 Answer Date Recorded [...] Comments Blood Pressure 122/72 06/27/2024 1:02 PM GEODETIC ENGINEER Pulse 104 06/27/2024 1:02 PM GEODETIC ENGINEER Temperature 36.7 C (98.1 F) 06/27/2024 1:02 PM GEODETIC ENGINEER Respiratory Rate - - Oxygen Saturation 100% 06/27/2024 1:02 PM GEODETIC ENGINEER Inhaled Oxygen Concentration - - Weight 68.8 kg (151 lb 12 oz) 06/27/2024 1:02 PM GEODETIC ENGINEER Height 170.2 cm (5' 7 ) 06/27/2024 1:02 PM GEODETIC ENGINEER Body Mass Index 23.77 06/27/2024 1:02 PM GEODETIC ENGINEER Procedures * TSH HI LOW REFLEX FREE T4(Performed 06/27/2024) Performed for Leukocytosis, unspecified type * CBC W AUTO DIFFERENTIAL (CANCER CARE)(Performed 06/27/2024) Performed for Leukocytosis, unspecified type * XR CHEST 2VW(Performed 05/08/2024) Performed for Positive ERNO (antinuclear antibody), Leukocytosis, unspecified type * SS-A/SS-B (SJOGREN'S) ANTIBODY PANEL(Performed 04/12/2024) Performed for Positive RENO (antinuclear antibody), Polyarthralgia, Myalgia, multiple sites, Other fatigue, Dry mouth, Numbness, Other low back pain * OLSON (SM) ANTIBODY UBALDO(Performed 04/12/2024) Performed for Positive RENO (antinuclear antibody), Polyarthralgia, Myalgia, multiple sites, Other fatigue, Dry mouth, Numbness, Other low back pain * SCLERODERMA 70 (SCL) ANTIBODY(Performed 04/12/2024) Performed for Positive RENO (antinuclear antibody), Polyarthralgia, Myalgia, multiple sites, Other fatigue, Dry mouth, Numbness, Other low back pain * PERSONAL BANKING REPRESENTATIVE ANTIBODY(Performed 04/12/2024) Performed for Positive RENO (antinuclear antibody), Polyarthralgia, Myalgia, multiple sites, Other fatigue, Dry mouth, Numbness, Other low back pain * RENO BLOOD SCREEN W/REFLEX TITER(Performed 04/12/2024) Performed for Positive RENO (antinuclear antibody), Polyarthralgia, Myalgia, multiple sites, Other fatigue, Dry mouth, Numbness, Other low back pain * LIPID PROFILE(Performed 04/12/2024) Performed for Hyperlipidemia, unspecified hyperlipidemia type * SCLEROSIS 12 ANTIBODY PNL(Performed 04/12/2024) Performed for Positive RENO (antinuclear antibody), Polyarthralgia, Myalgia, multiple sites, Other fatigue, Dry mouth, Numbness, Other low back pain * PROTEIN CREATININE RATIO URINE RANDOM PNL(Performed 04/12/2024) Performed for Positive RENO (antinuclear antibody), Polyarthralgia, Myalgia, multiple sites, Other fatigue, Dry mouth, Numbness, Other low back pain * THIOPURINE METHYLTRANSFERASE(Performed 04/12/2024) Performed for Positive RENO (antinuclear antibody), Polyarthralgia, Myalgia, multiple sites, Other fatigue, Dry mouth, Numbness, Other low back pain * DNA ANTIBODY DS CRITHIDIA W/REFLEX TITER(Performed 04/12/2024) Performed for Positive RENO (antinuclear antibody), Polyarthralgia, Myalgia, multiple sites, Other fatigue, Dry mouth, Numbness, Other low back pain * RHEUMATOID FACTOR BLOOD QUANTITATIVE(Performed 04/12/2024) Performed for Positive RENO (antinuclear antibody), Polyarthralgia, Myalgia, multiple sites, Other fatigue, Dry mouth, Numbness, Other low back pain * CALCIUM IONIZED BLOOD(Performed 04/12/2024) Performed for Positive RENO (antinuclear antibody), Polyarthralgia, Myalgia, multiple sites, Other fatigue, Dry mouth, Numbness, Other low back pain * HEPATITIS C AB W/RFLX TO HCV RNA QN PCR(Performed 04/12/2024) Performed for Positive RENO (antinuclear antibody), Polyarthralgia, Myalgia, multiple sites, Other fatigue, Dry mouth, Numbness, Other low back pain * HEPATITIS B SURFACE ANTIGEN W RFLX CONFIRMATION(Performed 04/12/2024) Performed for Positive RENO (antinuclear antibody), Polyarthralgia, Myalgia, multiple sites, Other fatigue, Dry mouth, Numbness, Other low back pain * HEPATITIS B CORE ANTIBODY REFLEX IGM(Performed 04/12/2024) Performed for Positive RENO (antinuclear antibody), Polyarthralgia, Myalgia, multiple sites, Other fatigue, Dry mouth, Numbness, Other low back pain * URINALYSIS W/MICROSCOPIC NO CULTURE(Performed 04/12/2024) Performed for Positive RENO (antinuclear antibody), Polyarthralgia, Myalgia, multiple sites, Other fatigue, Dry mouth, Numbness, Other low back pain * ERYTHROCYTE SEDIMENTATION RATE(Performed 04/12/2024) Performed for Positive RENO (antinuclear antibody), Polyarthralgia, Myalgia, multiple sites, Other fatigue, Dry mouth, Numbness, Other low back pain * CYCLIC CITRULLINATED PEPTIDE(CCP) AB IGG(Performed 04/12/2024) Performed for Positive RENO (antinuclear antibody), Polyarthralgia, Myalgia, multiple sites, Other fatigue, Dry mouth, Numbness, Other low back pain * CREATININE BLOOD(Performed 04/12/2024) Performed for Positive RENO (antinuclear antibody), Polyarthralgia, Myalgia, multiple sites, Other fatigue, Dry mouth, Numbness, Other low back pain * C-REACTIVE PROTEIN(Performed 04/12/2024) Performed for Positive RENO (antinuclear antibody), Polyarthralgia, Myalgia, multiple sites, Other fatigue, Dry mouth, Numbness, Other low back pain * COMPLEMENT C4(Performed 04/12/2024) Performed for Positive RENO (antinuclear antibody), Polyarthralgia, Myalgia, multiple sites, Other fatigue, Dry mouth, Numbness, Other low back pain * COMPLEMENT C3(Performed 04/12/2024) Performed for Positive RENO (antinuclear antibody), Polyarthralgia, Myalgia, multiple sites, Other fatigue, Dry mouth, Numbness, Other low back pain * CK BLOOD(Performed 04/12/2024) Performed for Positive RENO (antinuclear antibody), Polyarthralgia, Myalgia, multiple sites, Other fatigue, Dry mouth, Numbness, Other low back pain * CBC W AUTO DIFFERENTIAL(Performed 04/12/2024) Performed for Positive RENO (antinuclear antibody), Polyarthralgia, Myalgia, multiple sites, Other fatigue, Dry mouth, Numbness, Other low back pain * LUPUS ANTICOAGULANT PANEL W RFLX(Performed 04/12/2024) Performed for Positive RENO (antinuclear antibody), Polyarthralgia, Myalgia, multiple sites, Other fatigue, Dry mouth, Numbness, Other low back pain * CARDIOLIPIN ANTIBODY IGA/IGG/IGM PANEL(Performed 04/12/2024) Performed for Positive RENO (antinuclear antibody), Polyarthralgia, Myalgia, multiple sites, Other fatigue, Dry mouth, Numbness, Other low back pain * BETA-2 GLYCOPROTEIN 1 ANTIBODY IGG/IGM/IGA PANEL(Performed 04/12/2024) Performed for Positive RENO (antinuclear antibody), Polyarthralgia, Myalgia, multiple sites, Other fatigue, Dry mouth, Numbness, Other low back pain * ANGIOTENSIN CONVERTING ENZYME BLOOD(Performed 04/12/2024) Performed for Positive RENO (antinuclear antibody), Polyarthralgia, Myalgia, multiple sites, Other fatigue, Dry mouth, Numbness, Other low back pain * ALDOLASE(Performed 04/12/2024) Performed for Positive RENO (antinuclear antibody), Polyarthralgia, Myalgia, multiple sites, Other fatigue, Dry mouth, Numbness, Other low back pain Results * TSH HI LOW REFLEX FREE T4 (06/27/2024 3:44 PM GEODETIC ENGINEER) TSH 1.778 0.350 - 4.940 uIU/mL [facility] INSURANCE BILL Blood BLOOD SPECIMEN / Unknown 06/27/2024 3:44 PM GEODETIC ENGINEER 06/27/2024 Comment:Blood Release to pat i Juan Jose [facility] INSURANCE BILL - 06/27/2024 11:06 PM GEODETIC ENGINEER Performed at: [address] [place] [id number] Physics Teacher: Daryn Ruffin MD, Phone: [phone] Joey Canela MD LAB - CHEMISTRY CARI DELGADO [facility] INSURANCE BILL [address] [place] [address] * (ABNORMAL) CBC W AUTO DIFFERENTIAL (CANCER CARE) (06/27/2024 1:46 PM GEODETIC ENGINEER) WBC 9.6 4.4 - 10.7 x10E9/L 06/27/2024 2:09 PM GEODETIC ENGINEER [facility] CC LAB STM Neutrophils % 37.1(L) 44.0 - 73.0 % 06/27/2024 2:09 PM GEODETIC ENGINEER [facility] CC LAB STM Lymphocytes % 50.8(H) 20.0 - 43.0 % 06/27/2024 2:09 PM GEODETIC ENGINEER [facility] CC LAB STM Monocytes % 9.9 5.0 - 13.0 % 06/27/2024 2:09 PM GEODETIC ENGINEER [facility] CC LAB STM Eosinophils % 0.5 0.0 - 6.0 % 06/27/2024 2:09 PM GEODETIC ENGINEER [facility] CC LAB STM Basophils % 1.1 0.0 - 2.0 % 06/27/2024 2:09 PM GEODETIC ENGINEER [facility] CC LAB STM Immature Granulocytes 0.6 <=1 % 06/27/2024 2:09 PM GEODETIC ENGINEER [facility] CC LAB STM Neutrophil Absolute 3.55 2.01 - 7.14 x10E9/L 06/27/2024 2:09 PM GEODETIC ENGINEER [facility] CC LAB STM Lymphocytes Absolute 4.88(H) 1.07 - 3.94 x10E9/L 06/27/2024 2:09 PM GEODETIC ENGINEER [facility] CC LAB STM Monocytes Absolute 0.95 0.26 - 1.07 x10E9/L 06/27/2024 2:09 PM GEODETIC ENGINEER [facility] CC LAB STM Eosinophils Absolute 0.05 0 - 0.47 x10E9/L 06/27/2024 2:09 PM GEODETIC ENGINEER [facility] CC LAB STM Basophils Absolute 0.11(H) 0 - 0.08 x10E9/L 06/27/2024 2:09 PM [facility] CC LAB STM RBC 4.30 3.80 - 5.20 x10E12/L 06/27/2024 2:09 PM GEODETIC ENGINEER [facility] CC LAB STM Hemoglobin 14.0 12.0 - 15.6 gm/dL 06/27/2024 2:09 PM GEODETIC ENGINEER [facility] CC LAB STM Hematocrit 41.0 35.9 - 45.5 % 06/27/2024 2:09 PM [facility] CC LAB STM MCV 95.3 80.7 - 98.3 fl 06/27/2024 2:09 PM [facility] CC LAB STM MCH 32.6 26.7 - 34.0 pg 06/27/2024 2:09 PM [facility] CC LAB STM MCHC 34.1 30.8 - 35.9 gm/dL 06/27/2024 2:09 PM [facility] LAB [facility] RDW-CV 14.2 12.1 - 14.9 % 06/27/2024 2:09 PM [facility] CC LAB STM Platelet Count 352 153 - 416 x10E9/L 06/27/2024 2:09 PM [facility] LAB STM MPV 9.0(L) 9.4 - 12.9 fl 06/27/2024 2:09 PM [facility] LAB STM NRBC 0.0 <=0 /100 WBC 06/27/2024 2:09 PM [facility] Blood BLOOD SPECIMEN / Unknown 06/27/2024 1:46 PM GEODETIC ENGINEER 06/27/2024 1:46 PM GEODETIC ENGINEER Joey Canela MD LAB - HEMATOLOGY ORD ERABLES [facility] [address] * XR Chest 2Vw (05/08/2024) Anatomical Region Laterality Modality Chest Other Tamika George MD DIAGNOSTIC IMAGING O RDERABLES * OLSON (SM) ANTIBODY UBALDO (04/12/2024 12:08 PM GEODETIC ENGINEER) SM Antibody <1.0 NEG <1.0 NEG AI [facility] Comment: Test Performed at: [facility] [address] [facility] [place] [address] LORNA HOLLEY MD Blood BLOOD SPECIMEN / Unknown 04/12/2024 12:08 PM GEODETIC ENGINEER 04/12/2024 12:08 PM GEODETIC ENGINEER Tamika George MD LAB - CHEMISTRY CARI DELGADO Performing Organization Address [facility] Co de Phone Number [facility] [phone] [place] [address] * PERSONAL BANKING REPRESENTATIVE ANTIBODY (04/12/2024 12:08 PM GEODETIC ENGINEER) Pathologist [facility] PERSONAL BANKING REPRESENTATIVE Antibody <1.0 NEG <1.0 NEG AI [facility] Comment: Test Performed at: [facility] [address] [facility] [place] [address] LORNA HOLLEY MD Blood BLOOD SPECIMEN / Unknown 04/12/2024 12:08 PM GEODETIC ENGINEER 04/12/2024 12:08 PM GEODETIC ENGINEER Tamika George MD LAB - CHEMISTRY CARI DELGADO Performing Organization Address [facility] Co de Phone Number [facility] [phone] [place] [address] * RENO BLOOD SCREEN W/REFLEX TITER (04/12/2024 12:08 PM GEODETIC ENGINEER) Pathologist [facility] RENO Screen NEGATIVE NEGATIVE [facility] Comment: RENO [...] AC-0: Negative International Consensus on RENO Patterns (https://doi.org/10.1515/dwfd-0808-1974) For additional information, please refer to http://education.ShipHawk.uberlife/faq/IPD499 (This link is being provided for informational/ educational purposes only.) Test Performed at: [facility] [address] [place] [address] LORNA HOLLEY MD Blood BLOOD SPECIMEN / Unknown 04/12/2024 12:08 PM GEODETIC ENGINEER 04/12/2024 12:08 PM GEODETIC ENGINEER Tamika George MD LAB - CHEMISTRY CARI DELGADO Performing Organization Address [facility] [place] [address] * SS-A/SS-B (SJOGREN'S) ANTIBODY PANEL (04/12/2024 12:08 PM GEODETIC ENGINEER) Sjogren's Antibodies (SSA) <1.0 NEG <1.0 NEG AI [facility] Sjogren's Antibodies (SSB) <1.0 NEG <1.0 NEG AI [facility] Comment: Test Performed at: [place] [address] LORNA HOLELY MD Blood BLOOD SPECIMEN / Unknown 04/12/2024 12:08 PM GEODETIC ENGINEER 04/12/2024 12:08 PM GEODETIC ENGINEER Tamika George MD LAB - CHEMISTRY CARI DELGADO Performing Organization Address [facility] [place] [address] * SCLERODERMA 70 (SCL) ANTIBODY (04/12/2024 12:08 PM GEODETIC ENGINEER) SCL-70 Antibody <1.0 NEG <1.0 NEG AI [facility] Comment: Test Performed at: [facility] [address] [place] [address] LORNA HOLLEY MD Blood BLOOD SPECIMEN / Unknown 04/12/2024 12:08 PM GEODETIC ENGINEER 04/12/2024 12:08 PM GEODETIC ENGINEER Tamika George MD LAB - CHEMISTRY CARI DELGADO Performing Organization Address [facility] Co de Phone Number [facility] [address] [place] [phone] * (ABNORMAL) SCLEROSIS 12 ANTIBODY PNL (04/12/2024 12:05 PM GEODETIC ENGINEER) SCL-70 <11 <11 SI [facility] Centromere protein [...] patients and anti-RP155 antibodies in about 8%. Fydt-J9-mrBXH antibodies are associated with SSc and inflammatory myopathy overlap syndromes. Three major components of U1-snRNP are tested: U1-snRNP PERSONAL BANKING REPRESENTATIVE A, U1-snRNP PERSONAL BANKING REPRESENTATIVE C, U1-snRNP [id number]. The presence of U1-snRNP antibodies occur in [...] is directed to one of two proteins: PM/Stg108 and/or PM/Scl75. More information can be found at [email or web address]/[email or web address]/testguide.action ?dc=CF-SystScler This test was developed and its analytical performance characteristics have been determined by [employer]. It has not been cleared or approved by FDA. This assay has been validated pursuant to the CLIA regulations and is used for clinical purposes. Test Performed at: [employer]/[facility] [address] [place] [address] KISHAN ENCINAS MD,PHD,DELBERT Blood BLOOD SPECIMEN / Unknown 04/12/2024 12:05 PM GEODETIC ENGINEER 04/12/2024 12:06 PM GEODETIC ENGINEER Tamika George MD LAB - SEROLOGY ORDER DEEPTI [facility] [address] [place] [address] * HEPATITIS C AB W/RFLX TO HCV RNA QN PCR (04/12/2024 12:05 PM GEODETIC ENGINEER) Hepatitis C Antibody NON-REACTI VE NON-REACT PRASHANTH [facility] Comment: HCV antibody was non-reactive. There is no laboratory evidence of HCV infection. In most cases, no further action is required. However, if recent HCV exposure is suspected, a test for HCV RNA (test code 68417) is suggested. For additional information please refer to http://education.Events Core.uberlife/faq/UHF57n8 (This link is being provided for informational/ educational purposes only.) Test Performed at: [employer] [address] [facility] [place] [address] LORNA HOLLEY MD Blood BLOOD SPECIMEN / Unknown 04/12/2024 12:05 PM GEODETIC ENGINEER 04/12/2024 12:06 PM GEODETIC ENGINEER Tamika George MD LAB - CHEMISTRY ORDE RABLES Performing Organization Address [facility]/ZIP Co de Phone Number [facility] [address] [place] [address] * DNA ANTIBODY DS CRITHIDIA W/REFLEX TITER (04/12/2024 12:05 PM GEODETIC ENGINEER) dsDNA Antibody Crithidia IFA NEGATIVE NEGATIVE [facility] Comment: Test Performed at: [employer]/[facility] [address] [place] [address] KISHAN ENCINAS MD,PHD,DELBERT Blood BLOOD SPECIMEN / Unknown 04/12/2024 12:05 PM GEODETIC ENGINEER 04/12/2024 12:06 PM GEODETIC ENGINEER Tamika George MD LAB - HEMATOLOGY ORD ERABLES Performing Organization Address [facility] Co de Phone Number [facility] [address] [place] [address] * URINALYSIS W/MICROSCOPIC NO CULTURE (04/12/2024 12:05 PM GEODETIC ENGINEER) Color UA YELLOW YELLOW [facility] Appearance CLEAR CLEAR [facility] Specific Nebo UA 1.008 1.001 - 1.035 [facility] pH [...] SEEN /LPF [facility] Comment: Test Performed at: [facility] [place] [place] [address] LORNA HOLLEY MD Granular Casts [facility] Casts UA [facility] Yeast [facility] Comments [facility] Note [facility] Comment: Test Performed at: [facility] [address] [facility] [place] [place] [address] LORNA HOLLEY MD Urine URINE SPECIMEN OBTAINED BY CLEAN CATCH PROCEDURE / Unknown 04/12/2024 12:05 PM GEODETIC ENGINEER 04/12/2024 12:06 PM GEODETIC ENGINEER Tamika George MD LAB - URINALYSIS ORD ERABLES Performing Organization Address [facility]/ZIP Co de Phone Number [facility] [address] [place] [address] * HEPATITIS B CORE ANTIBODY REFLEX IGM (04/12/2024 12:05 PM GEODETIC ENGINEER) Pathologist [facility] Hepatitis B Core Virus Antibody Total NON-REACTI VE NON-REACT PRASHANTH [facility] Comment: For additional information, please refer to http://education.Events Core.uberlife/faq/AVO990 (This link is being provided for informational/ educational purposes only.) Test Performed at: [facility] [address] [facility] [place] [place] [address] LORNA HOLLEY MD Blood BLOOD SPECIMEN / Unknown 04/12/2024 12:05 PM GEODETIC ENGINEER 04/12/2024 12:06 PM GEODETIC ENGINEER Tamika George MD LAB - SEROLOGY ORDER DEEPTI Performing Organization Address [facility]/ZIP Co de Phone Number [facility] [phone] [place] [address] * CARDIOLIPIN ANTIBODY IGA/IGG/IGM PANEL (04/12/2024 12:05 PM GEODETIC ENGINEER) Pathologist [facility] Cardiolipin Antibody IgA <2.0 APL-U/mL [facility] Comment: Value Interpretation ----- < 20.0 [...] aging. For additional information, please refer to http://CollabRx.Prizzm/faq/TPV568 (This link is being provided for informational/ educational purposes only.) Test Performed at: [employer] [facility] [employer] [address] [address] NEREYDA Peewee [place] Blood BLOOD SPECIMEN / Unknown 04/12/2024 12:05 PM GEODETIC ENGINEER 04/12/2024 12:06 PM GEODETIC ENGINEER Tamika George MD LAB - SEROLOGY ORDER DEEPTI [facility] [address] [place] [address] * LUPUS ANTICOAGULANT PANEL W RFLX (04/12/2024 12:05 PM GEODETIC ENGINEER) Lupus Anticoagulant NOT DETECTED [facility] Comment: A Lupus Anticoagulant is not detected. For more information on this test, go to: http://CollabRx.Prizzm/faq/EFH97a4 (This link is being provided for informational/ educational purposes only.) This interpretation is based on the following test results: PTT LA Screen 34 < OR = 40 sec [facility] dRVVT Screen 45 < OR = 45 sec [facility] Comment: Test Performed at: [employer] [facility] [employer] [address] [address] NEREYDA [place] Blood BLOOD SPECIMEN / Unknown 04/12/2024 12:05 PM GEODETIC ENGINEER 04/12/2024 12:06 PM GEODETIC ENGINEER Tamika George MD LAB - HEMATOLOGY ORD ERABLES Performing Organization Address City/State/[facility] Co de Phone Number [employer] [address] [place] [address] * BETA-2 GLYCOPROTEIN 1 ANTIBODY IGG/IGM/IGA PANEL (04/12/2024 12:05 PM GEODETIC ENGINEER) Beta-2 Glycoprotein I Antibody IgG <2.0 <20.0 [...] aging. For additional information, please refer to http://CollabRx.Prizzm/faq/IST802 (This link is being provided for informational/ educational purposes only.) Test Performed at: [employer]/[facility] [id number] [place] [address] RADHA ROMERO MD,PHD Blood BLOOD SPECIMEN / Unknown 04/12/2024 12:05 PM GEODETIC ENGINEER 04/12/2024 12:06 PM GEODETIC ENGINEER Tamika George MD LAB - SEROLOGY ORDER DEEPTI Performing Organization Address [facility] [place] [address] * RHEUMATOID FACTOR BLOOD QUANTITATIVE (04/12/2024 12:05 PM GEODETIC ENGINEER) Rheumatoid Factor <10 <14 IU/mL [facility] Comment: Test Performed at: [facility] [facility] [address] [place] [address] LORNA HOLLEY MD Blood BLOOD SPECIMEN / Unknown 04/12/2024 12:05 PM GEODETIC ENGINEER 04/12/2024 12:06 PM GEODETIC ENGINEER Tamika George MD LAB - CHEMISTRY ORDE RABLES Performing Organization Address [facility] Co de Phone Number [address] [address] * C-REACTIVE PROTEIN (04/12/2024 12:05 PM GEODETIC ENGINEER) C-Reactive Protein <3.0 <8.0 mg/L [facility] Comment: Test Performed at: [facility] [address] [place] [address] LORNA HOLLEY MD Blood BLOOD SPECIMEN / Unknown 04/12/2024 12:05 PM GEODETIC ENGINEER 04/12/2024 12:06 PM GEODETIC ENGINEER Tamika George MD LAB - CHEMISTRY CARI DELGADO Performing Organization Address [facility] Co de Phone Number [facility] [phone] [place] [address] * ANGIOTENSIN CONVERTING ENZYME BLOOD (04/12/2024 12:05 PM GEODETIC ENGINEER) Pathologist [facility] Angiotensin-Conv erting Enzyme 52 9 - 67 U/L [facility] Comment: Test Performed at: [facility] [address] [facility] [place] [address] LORNA HOLLEY MD Blood BLOOD SPECIMEN / Unknown 04/12/2024 12:05 PM GEODETIC ENGINEER 04/12/2024 12:06 PM GEODETIC ENGINEER Tamika George MD LAB - CHEMISTRY CARI DELGADO Performing Organization Address [facility] Co de Phone Number [facility] [phone] [place] [address] * ALDOLASE (04/12/2024 12:05 PM GEODETIC ENGINEER) Pathologist [facility] Aldolase 6.2 < OR = 8.1 U/L [facility] Comment: Test Performed at: [employer] [address] [place] [address] LORNA HOLLEY MD Blood BLOOD SPECIMEN / Unknown 04/12/2024 12:05 PM GEODETIC ENGINEER 04/12/2024 12:06 PM GEODETIC ENGINEER Tamika George MD LAB - CHEMISTRY CARI DELGADO Performing Organization Address [facility] Co de Phone Number [facility] [address] [place] [address] * THIOPURINE METHYLTRANSFERASE (04/12/2024 12:05 PM GEODETIC ENGINEER) Pathologist [facility] TPMT Activity 18 nmol/hr/mL RBC [facility] Comment: Reference Range for TPMT Activity: >12 Normal 4-12 Heterozygote or low metabolizer <4 Homozygote Deficient Range This test was developed and its analytical performance characteristics have been determined by [employer]. It has not been cleared or approved by FDA. This assay has been validated pursuant to the CLIA regulations and is used for clinical purposes. Test Performed at: [employer]/[facility] [address] [id number] KISHAN ENCINAS MD,PHD,DELBERT Blood BLOOD SPECIMEN / Unknown 04/12/2024 12:05 PM GEODETIC ENGINEER 04/12/2024 12:06 PM GEODETIC ENGINEER Tamika George MD LAB - CHEMISTRY CARI DELGADO Performing Organization Address [facility] [place] [address] * CYCLIC CITRULLINATED PEPTIDE(CCP) AB IGG (04/12/2024 12:05 PM GEODETIC ENGINEER) Pathologist [facility] Cyclic Citrullinated Peptide Antibody IgG <16 UNITS [facility] Comment: Reference Range Negative: <20 Weak Positive: 20-39 Moderate Positive: 40-59 Strong Positive: >59 Test Performed at: [employer] [place] [employer] [place] [facility] [id number] LORNA HOLLEY MD Blood BLOOD SPECIMEN / Unknown 04/12/2024 12:05 PM GEODETIC ENGINEER 04/12/2024 12:06 PM GEODETIC ENGINEER Tamika George MD LAB - CHEMISTRY CRAI DELGADO Performing Organization Address [facility] [place] [address] * ERYTHROCYTE SEDIMENTATION RATE (04/12/2024 12:05 PM GEODETIC ENGINEER) Pathologist [facility] Erythrocyte Sedimentation Rate Westergren 11 < OR = 30 mm/h [facility] Comment: Test Performed at: [employer] [place] [address] LORNA HOLLEY MD Blood BLOOD SPECIMEN / Unknown 04/12/2024 12:05 PM GEODETIC ENGINEER 04/12/2024 12:06 PM GEODETIC ENGINEER Tamika George MD LAB - HEMATOLOGY ORD JAVIER Performing Organization Address City/[facility]/ZIP Co de Phone Number [facility] [address] [place] [address] * (ABNORMAL) CBC WITH DIFFERENTIAL (04/12/2024 12:05 PM GEODETIC ENGINEER) Pathologist [facility] White Blood Cell Count 11.3(H) 3.8 - [...] 1.1 % [facility] Comment: Test Performed at: [place] [address] LORNA HOLLEY MD Blood BLOOD SPECIMEN / Unknown 04/12/2024 12:05 PM GEODETIC ENGINEER 04/12/2024 12:06 PM GEODETIC ENGINEER Tamika George MD LAB - HEMATOLOGY ORD ERABLES [facility] [address] [place] [address] * COMPLEMENT C4 (04/12/2024 12:05 PM GEODETIC ENGINEER) Pathologist [facility] Complement C4 36 15 - 57 mg/dL [facility] Comment: Test Performed at: [employer] [id number] [facility] [address] LORNA HOLLEY MD Blood BLOOD SPECIMEN / Unknown 04/12/2024 12:05 PM GEODETIC ENGINEER 04/12/2024 12:06 PM GEODETIC ENGINEER Tamika George MD LAB - SEROLOGY ORDER DEEPTI Performing Organization Address [facility] [place] [address] * (ABNORMAL) PROTEIN CREATININE RATIO URINE RANDOM PNL (04/12/2024 12:05 PM GEODETIC ENGINEER) Creatinine Urine 41 20 - 275 mg/dL [facility] Protein/Creatini ne Ratio 98 24 - 184 mg/g creat [facility] Protein/Creatini ne Ratio 0.098 0.024 - 0.184 mg/mg creat [facility] Protein Random Urine 4(L) 5 - 24 mg/dL [facility] Comment: Verified by repeat analysis. Test Performed at: [employer] [place] [address] LORNA HOLLEY MD Urine URINE SPECIMEN OBTAINED BY CLEAN CATCH PROCEDURE / Unknown 04/12/2024 12:05 PM GEODETIC ENGINEER 04/12/2024 12:06 PM GEODETIC ENGINEER Tamika George MD LAB - URINE CHEMISTR Y ORDERABLES Performing Organization Address [facility] [place] [address] * HEPATITIS B SURFACE ANTIGEN W RFLX CONFIRMATION (04/12/2024 12:05 PM GEODETIC ENGINEER) Pathologist [facility] Hepatitis B Virus Surface Antigen NON-REACT PRASHANTH NON-REACT PRASHANTH [facility] Comment: For additional information, please refer to http://education.Prizzm/faq/EUN611 (This link is being provided for informational/ educational purposes only.) Test Performed at: [employer] [place] [address] LORNA HOLLEY MD Confirmation [facility] Comment: Test Performed at: [employer] [place] [address] LORNA HOLLEY MD Blood BLOOD SPECIMEN / Unknown 04/12/2024 12:05 PM GEODETIC ENGINEER 04/12/2024 12:06 PM GEODETIC ENGINEER Tamika George MD LAB - CHEMISTRY CARI DELGADO Performing Organization Address [facility] Co de Phone Number [facility] [phone] [place] [address] * CREATININE BLOOD (04/12/2024 12:05 PM GEODETIC ENGINEER) Creatinine 0.76 0.50 - 1.03 mg/dL [facility] eGFR by Cystatin C 92 > OR = 60 mL/min/1.7 3m2 [facility] Comment: Test Performed at: [employer] [facility] [address] LORNA HOLLEY MD Blood BLOOD SPECIMEN / Unknown 04/12/2024 12:05 PM GEODETIC ENGINEER 04/12/2024 12:06 PM GEODETIC ENGINEER Tamika George MD LAB - CHEMISTRY CARI DELGADO Performing Organization Address [facility] Co de Phone Number [facility] [address] [place] [address] * CK BLOOD (04/12/2024 12:05 PM GEODETIC ENGINEER) CK 80 29 - 143 U/L [facility] Comment: Test Performed at: [employer] [place] [address] LORNA HOLLEY MD Blood BLOOD SPECIMEN / Unknown 04/12/2024 12:05 PM GEODETIC ENGINEER 04/12/2024 12:06 PM GEODETIC ENGINEER Tamika George MD LAB - CHEMISTRY CARI DELGADO Performing Organization Address [facility] Co de Phone Number [facility] [address] [place] [address] * CALCIUM IONIZED BLOOD (04/12/2024 12:05 PM GEODETIC ENGINEER) Calcium Ionized 4.9 4.7 - 5.5 mg/dL [facility] Comment: Test Performed at: [employer] [place] [address] LORNA HOLLEY MD Blood BLOOD SPECIMEN / Unknown 04/12/2024 12:05 PM GEODETIC ENGINEER 04/12/2024 12:06 PM GEODETIC ENGINEER Tamika George MD LAB - CHEMISTRY CARI DELGADO Performing Organization Address [facility]/ZIP Co de Phone Number [facility] [address] [place] [address] * (ABNORMAL) LIPID PROFILE (LIPID PANEL) (04/12/2024 12:05 PM GEODETIC ENGINEER) Cholesterol 136 <200 mg/dL [facility] HDL Cholesterol [...] LDL-C. Bravo JACKSON et al. ANTIONE. 2013;310(19): 1392-2692 (http://education.GigOwl/faq/GDX244) CHOL/HDLC RATIO 3.0 <5.0 (calc) [facility] Non HDL Cholesterol 90 <130 mg/dL (calc) [facility] Comment: For patients with diabetes plus 1 major ASCVD risk factor, treating to a non-HDL-C goal of <100 mg/dL (LDL-C of <70 mg/dL) is considered a therapeutic option. Test Performed at: [employer] [employer] [place] [address] LORNA HOLLEY MD Blood BLOOD SPECIMEN / Unknown 04/12/2024 12:05 PM GEODETIC ENGINEER 04/12/2024 12:06 PM GEODETIC ENGINEER Tamika George MD LAB - CHEMISTRY CARI DELGADO Performing Organization Address City/[facility]/ZIP Co de Phone Number [facility] [address] [place] [address] * COMPLEMENT C3 (04/12/2024 12:05 PM GEODETIC ENGINEER) Complement C3 147 83 - 193 mg/dL [facility] Comment: Test Performed at: [employer] [place] [address] LORNA HOLLEY MD Blood BLOOD SPECIMEN / Unknown 04/12/2024 12:05 PM GEODETIC ENGINEER 04/12/2024 12:06 PM GEODETIC ENGINEER Tamika George MD LAB - CHEMISTRY CARI DELGADO [facility] [address] [place] [address] Care Teams [employer] Silverware Salesperson Relationship Specialty Start Date End Date Stephanie Faustin, MOLDING PROCESS TECHNICIAN-HOTBED OPERATOR [address] [place] [address] [place] [id number] PCP - General Nurse Practitioner Family 06/27/24
--- OUTSIDE RECORDS SUMMARY | 2024-07-12 13:39 | XMS_ITS | Clinical Summary ---
Author Organization [facility] Address [address] [place] [address] Care Team Providers Care Dobby Loom Weaver Name Role Phone Unavailable Primary Care Provider Unavailabl e Social History Tobacco Use Types Packs/Day Years Used Date Smoking Tobacco: Never Assessed Comments Unknown Sex and Gender Information Value Date Recorded Sex Assigned at Not on file Legal Sex Female 7:08 PM CDT Gender Identity Not on file Sexual Orientation Not on file Plan of Treatment Health Maintenance Due Date Last Done Comments Cervical Cancer Screening Pa p Smear (Age 30 to 64) Every 3 Years 1969 Colorectal Cancer Screening Colonoscopy (10 Years) 1969 Annual Physical 01/11/1972 Hepatitis C 1987 DTaP, Tdap and Td Vaccines ( 1 - Tdap) 01/11/1988 Hepatitis B Vaccines (1 of 3 - 19+ 3-dose series) 01/11/1988 Cervical Cancer Screening Pa p with HPV Testing (Age 30 to 64) Every 5 Years 1999 Cervical Cancer Screening with HPV 1999 Mammogram Screening 2009 Zoster Vaccines (1 of 2) 2019 COVID-19 Vaccine (2023-2 5 season) 2024 Influenza Adult (#1) 2024 Meningococcal B Vaccine Aged Out No l onger eligible based on patient's age to complete this topic Meningococcal Vaccine Aged Out No vikki nevaeh eligible based on patient's age to complete this topic Pneumococcal Vaccine: Pediat rics (0 to 5 Years) and At-Risk Patients (6 to 64 Years) Aged Out No longer eligible b ased on patient's age to complete this topic RSV Immunizations Under 20 Months Aged Out No longer eligible based on patient's age to complete this topic
== END 2024-07-12 13:35 | disposition home or self-care (01) ==
PROVIDERS: PCP Family Medicine
DX: D72.829 Elevated white blood cell count, unspecified (principal); Z90.49 Acquired absence of other specified parts of digestive tract
CPT/HCPCS: 76705

== ENCOUNTER 2024-08-09 16:42 | Outpatient (CLI) | payer MEDICARE, MEDICAID, SELFPAY ==
--- NOTE | ~2024-08-09 | US_ITS ---
Right side of the neck ULTRASOUND (Doppler ultrasound interrogation techniques used as needed for thi s exam.) Ordering provider: Pamela Her, EMPLOYMENT APPEALS EXAMINER History: . Neck mass . Comparison: None. FINDINGS/impression: 2 hypoechoic areas with the largest measuring 3.9 x 0.8 x 1.5 cm which are most likely lymph nodes. C linical evaluation and follow-up advised.. Reviewed, dictated and finalized at location A.
--- OUTSIDE RECORDS SUMMARY | 2024-08-09 17:55 | XMS_ITS | Referral Summary ---
Author Organization [facility] Address [address] [place] [address] Care Team Providers Care Deputy Commissioner Name Role Phone Stephanie Faustin ANALYTICAL DATA MINER-[facility] Primary Care Provider + Source Comments [facility],non-owned Affiliates and Associated Physician Practices is amultiple site organization consisting of ambulatory clinics and hospital sitesin [place], [place], [place] and [place]. This disclosure is being madepursuant to the Care Everywhere program and may not contain all information available regarding this patient. Last updated 18.[facility] Encounters Date Type Department Care Team Description 08/04/[address] [address] Joey Canela MD General 07/17/[address] [facility] [address] [address] Tricia Goetz MLT(ASCP) Thrombocytopenia (HCC) ; Leukocytosis, unspecified type; Anemia, unspecified type 07/17/[address] [facility] [address] [address] Tricia Goetz MLT(ASCP) Thrombocytopenia (HCC) ; B12 deficiency; Anemia, unspecified type; Leukocytosis, unspecified type 07/14/[address] [address] Joey Canela MD General 07/05/2024 Orders Only [address] [place] [address] Joey Canela MD 07/04/[address] [place] [address] Joey Canela MD General 06/27/2024 12:50 PM REFUND CLERK Office Visit [address] [address] Joey Canela MD Leukocytosis, unspecified type (Primary Dx); Tobacco abuse 05/11/2024 Orders Only [facility] - Rheumatology [address], [address] [place] [id number] Tamika George MD Positive RENO (antinuclear antibody); Leukocytosis, unspecified type from Last 3 Months [...] (one) capsule by mouth at bedtime Active hydroxychloroquine (Plaquenil) 200 MG tabletIndications:Po sitive RENO (antinuclear antibody) Take 1 (one) tablet by mouth once daily 30 tablet 1 04/25/2024 Active Other Smokes medical marijuana prn for pain Active Active Problems No known active problems Social [...] Comments Blood Pressure 122/72 06/27/2024 1:02 PM REFUND CLERK Pulse 104 06/27/2024 1:02 PM REFUND CLERK Temperature 36.7 C (98.1 F) 06/27/2024 1:02 PM REFUND CLERK Respiratory Rate - - Oxygen Saturation 100% 06/27/2024 1:02 PM REFUND CLERK Inhaled Oxygen Concentration - - Weight 68.8 kg (151 lb 12 oz) 06/27/2024 1:02 PM REFUND CLERK Height 170.2 cm (5' 7 ) 06/27/2024 1:02 PM REFUND CLERK Body Mass Index 23.77 06/27/2024 1:02 PM REFUND CLERK Plan of Treatment Upcoming Encounters Date Type Department Care Team (Late st Contact Info) Description 12/26/2024 2:00 PM CDT Documentation [facility] Cancer [address] [address] 12/26/2024 2:10 PM CDT Office Visit [facility] Cancer [address] [address] Joey Canela MD [address] [place] [address] Procedures Procedure Name Priority Date/Time Associated Diagnosis Comments TSH HI LOW REFLEX FREE T4 Routine 06/27/2024 3:44 PM REFUND CLERK Leukocytosis, unspecified type CBC W AUTO DIFFERENTIAL (CANCER CARE) Routine 06/27/2024 1:46 PM REFUND CLERK Leukocytosis, unspecified type HEPATITIS C AB W/RFLX TO HCV RNA QN PCR Routine 04/12/2024 12:05 PM REFUND CLERK Positive RENO (antinuclear antibody) Polyarthralgia Myalgia, multiple sites Other fatigue Dry mouth Numbness Other low back pain from Last 3 Months or Most Recently Relevant to Health Maintenance Results * TSH HI LOW REFLEX FREE T4 (06/27/2024 3:44 PM REFUND CLERK) TSH 1.778 0.350 - 4.940 uIU/mL [facility] INSURANCE BILL Blood BLOOD SPECIMEN / Unknown 06/27/2024 3:44 PM REFUND CLERK 06/27/2024 Comment:Blood Release to [facility] INSURANCE BILL - 06/27/2024 11:06 PM REFUND CLERK Performed at: [address] [place] [id number] Motor Runner: Daryn Ruffin MD, Phone: [phone] Joey Canela MD LAB - CHEMISTRY CARI DELGADO [facility] INSURANCE BILL [address] [place] [address] * (ABNORMAL) CBC W AUTO DIFFERENTIAL (CANCER CARE) (06/27/2024 1:46 PM REFUND CLERK) WBC 9.6 4.4 - 10.7 x10E9/L 06/27/2024 2:09 PM REFUND CLERK [facility] Neutrophils % 37.1(L) 44.0 - 73.0 % 06/27/2024 2:09 PM REFUND CLERK [facility] Lymphocytes % 50.8(H) 20.0 - 43.0 % 06/27/2024 2:09 PM REFUND CLERK [facility] Monocytes % 9.9 5.0 - 13.0 % 06/27/2024 2:09 PM REFUND CLERK [facility] Eosinophils % 0.5 0.0 - 6.0 % 06/27/2024 2:[address] [facility] Basophils % 1.1 0.0 - 2.0 % 06/27/2024 2:[address] [facility] Immature Granulocytes 0.6 <=1 % 06/27/2024 2:[address] [facility] Neutrophil Absolute 3.55 2.01 - 7.14 x10E9/L 06/27/2024 2:[address] [facility] Lymphocytes Absolute 4.88(H) 1.07 - 3.94 x10E9/L 06/27/2024 2:[address] [facility] Monocytes Absolute 0.95 0.26 - 1.07 x10E9/L 06/27/2024 2:[address] [facility] Eosinophils Absolute 0.05 0 - 0.47 x10E9/L 06/27/2024 2:[address] [facility] Basophils Absolute 0.11(H) 0 - 0.08 x10E9/L 06/27/2024 2:[address] [facility] RBC 4.30 3.80 - 5.20 x10E12/L 06/27/2024 2:[address] [facility] Hemoglobin 14.0 12.0 - 15.6 gm/dL 06/27/2024 2:[address] [facility] Hematocrit 41.0 35.9 - 45.5 % 06/27/2024 2:[address] [facility] MCV 95.3 80.7 - 98.3 fl 06/27/2024 2:[address] [facility] MCH 32.6 26.7 - 34.0 pg 06/27/2024 2:[address] [facility] MCHC 34.1 30.8 - 35.9 gm/dL 06/27/2024 2:[address] [facility] RDW-CV 14.2 12.1 - 14.9 % 06/27/2024 2:[address] [facility] Platelet Count 352 153 - 416 x10E9/L 06/27/2024 2:[address] [facility] MPV 9.0(L) 9.4 - 12.9 fl 06/27/2024 2:[address] [facility] NRBC 0.0 <=0 /100 WBC 06/27/2024 2:[address] [facility] Blood BLOOD SPECIMEN / Unknown 06/27/2024 1:46 PM REFUND CLERK 06/27/2024 1:46 PM REFUND CLERK Joey Canela MD LAB - HEMATOLOGY FRANK HERRERA Performing Organization Address [facility]/ZIP Co de Phone Number [facility] [address] * HEPATITIS C AB W/RFLX TO HCV RNA QN PCR (04/12/2024 12:05 PM REFUND CLERK) Hepatitis C Antibody NON-REACTI VE NON-REACT PRASHANTH [facility] Comment: HCV antibody was non-reactive. There is no laboratory evidence of HCV infection. In most cases, no further action is required. However, if recent HCV exposure is suspected, a test for HCV RNA (test code 47312) is suggested. For additional information please refer to http://education.[employer]/faq/SYQ57f8 (This link is being provided for informational/ educational purposes only.) Test Performed at: [facility] [address] [place] [address] LORNA HOLLEY MD Blood BLOOD SPECIMEN / Unknown 04/12/2024 12:05 PM REFUND CLERK 04/12/2024 12:06 PM REFUND CLERK Tamika George MD LAB - CHEMISTRY CARI DELGADO [facility] [address] [place] [address] from Last 3 Months or Most Recently Relevant to Health Maintenance Care Teams Deputy Commissioner Relationship Specialty Start Date End Date Stephanie Faustin, ANALYTICAL DATA MINER-FURRIER SHOP SUPERVISOR [address] [place] [address] PCP - General Nurse Practitioner Family 06/27/24
--- OUTSIDE RECORDS SUMMARY | 2024-08-09 17:55 | XMS_ITS | Clinical Summary ---
Author Organization [facility] Address [address] [place] [address] Care Team Providers Care Firmware Architect Name Role Phone Unavailable Primary Care Provider [...]
--- OUTSIDE RECORDS SUMMARY | 2024-08-09 17:55 | XMS_ITS | CONTINUITY OF CARE DOCUMENT ---
Author Name nori julio Address Unknown Organization [facility] Address [address] [place] [address] Phone [phone] Care Team Providers Care Carpet Finishing Supervisor Name Role Phone Fern LECHUGA, Noel Unavailable ANA CARBAJAL MD Unavailable ANA CARBAJAL MD Unavailable PROBLEMS Condition Status Date Provider Notes Cardiology examination active Doris Ventim iglia [employer] Palpitations active Doris Ventimiglia [employer] Shortness of breath active Doris Ventimigl ia [employer]DER COPD active Doris Ventimiglia [employer]BUILDER Family history of CAD active Doris Ventimi glia [employer] Smoker active Noel Shirley MD Fibromyalgia active Noel Shirley MD Familial hypercholesterolemia active Noel Shirley MD Leg pain active Noel Shirley MD ENCOUNTERS Date Type Provider Location Encounter Diag nosis - 1 In-person encounter Office Visit Noel Shirley MD [facility] 1 - 2 In-person encounter Office Visit Noel Shirley MD [facility] SmokerFibromyalgiaFamilial hypercholesterolemiaLeg pain 3 - 4 In-person encounter Office Visit Noel Shirley MD [facility] Cardiology examinationPalpitationsShortness of breathCOPDFamily history of CADSmoker VITAL SIGNS Date Observation Value Provider Body Mass Index (Ratio) 23.18 kg/m2 Pa Luciano weight E&M 148 [lb_av] [facility] pulse rate 98 /min [facility] blood pressure, cuff size regular [facility] blood pressure, diastolic 69 mm[Hg] [facility] blood pressure, systolic 109 mm[Hg] [facility] oxygen saturation, oximetry 96 % [facility] respiratory rate E&M 16 /min [facility] iller height E&M 67 [in_i] [facility] Body Mass Index (Ratio) 23.33 kg/m2 Catalina Shirley MD blood pressure, cuff size regular [facility] blood pressure, diastolic 74 mm[Hg] [facility] blood pressure, systolic 97 mm[Hg] [facility] respiratory rate E&M 16 /min [facility] oxygen saturation, oximetry 97 % [facility] weight E&M 149 [lb_av] [facility] height E&M 67 [in_i] [facility] Body Mass Index (Ratio) 23.18 kg/m2 Shreyas Mcmullen blood pressure, cuff size regular [facility] blood pressure, diastolic 80 mm[Hg] Ke rri [place] blood pressure, systolic 122 mm[Hg] Winter Ritter oxygen saturation, oximetry 95 % Xiomara Ritter respiratory rate E&M 12 /min Xiomara bryan pulse rate 113 /min Xiomara Meyer [facility] weight E&M 148 [lb_av] Xiomara Meyer [facility] height E&M 67 [in_i] Xiomara Meyer lder ALLERGIES Allergy Name Onset Date Reaction Criticality Status CODEINE High Criticality active TETRACYCLINE High Criticality active PCN High Criticality active HISTORY OF MEDICATION USE Medication Status Instructions Dates Provider Indications Com ments ezetimibe 10 mg tablet active TAKE 1 TABLET BY MOUTH EVERY DAY Ayaz Mcmullen ezetimibe 10 mg tablet completed Take 1 tablet by mouth once a day - Ayaz Mcmullen Spiriva with HandiHaler 18 mcg capsule, w/inhalation device active Inhale 1 capsule as directed once a day inhale one crushed capsule daily Noel Shirley MD rosuvastatin 40 mg tablet active Take 1 tablet by mouth once a day Noel Shirley MD hydroxyzine pamoate 50 mg capsule active Xiomara Livingston doxepin 150 mg capsule active Xiomara Livingston albuterol sulfate 90 mcg/actuation HFA aerosol inhaler active Xiomara Livingston temazepam 30 mg capsule active Xiomara Livingston SOCIAL HISTORY Date Observation Value Provider drug use, illicit, d rug of choice marijuana [facility] drug use yes [facility] alcohol use no [facility] smoking/tobacco cess ation, patient education and counseling yes [facility] smoking history, tot al pack/day 0.5 [facility] cigarette use yes [facility] smoking status Current every day smoker F [facility] number of grandchildren Noel Shirley MD drug use, illicit, d rug of choice marijuana [facility] drug use yes [facility] alcohol use no [facility] smoking/tobacco cess ation, patient education and counseling yes [facility] smoking history, tot al pack/day 0.5 [facility] cigarette use yes [facility] smoking status Current every day smoker F arti Conway smoking/tobacco cess ation, patient education and counseling yes Dorischasity Alarcon [facility] alcohol use no Dorischasity hammer [facility] drug use, illicit, d rug of choice marijuana [place] Dorian [facility] drug use yes Dorischasity hammer [facility] smoking history, tot al pack/day 0.5 Doris Dorian [facility] cigarette use yes Doris Gerri madrigal [facility] smoking status Current every day smoker A kam Alarcon [facility] Surgical History of - Tonsillectomy Surgical History of - Tonsillectomy [place] Dorian [facility] appendectomy, history of Appendectomy, Hx of Dorischasity Alarcon [facility] INSURANCE PROVIDERS Payer name Policy type / Coverage type [place] red democrat ID [facility] Medicaid 0 [id number] [facility] [id number] ADVANCE DIRECTIVES Name Date DISCUSSED - NO DECISION MADE TREATMENT PLAN Date Name Performer [id number],C,cessation enc ouragd. Dorischasity Alarcon [facility] [id number],C,m other at 38 had CABG in late 20s M aternal grandmother CABG in 50s [place] Dorian [facility] [id number],C,W ill do 6 minute walk and PFTs H er updated medication list for this problem includes: Albuterol Sulfate 90 Mcg/actuation Hfa Aerosol Inhaler (Albuterol sulfate) Orders: 9 9204 MOD 45-59 min (CPT-91939) 6 minute walk test (CPT-87531) C omplete Echo (18727) S tress Regadenoson (CPT-89840) P ROBNP, N TERMINAL (71962) L IPID PANEL (8805) T SH, free T4, total T3 (8279) H EMOGLOBIN A1c (496) Dorischasity Alarcon [facility] [id number],C,W ith associated SOB and chest pain r ecent tele at OSH showed HR sinus tachycardia ranging from 69-156 average of 92 n o underlying arrhythmia u pdate labs and echo as noted above Doris Dorian [facility] [id number],C,P atelvira has had increasing SOB with minimal activity C annot make her bed or walk across her house without becoming SOB and tachycardic H as been ongoing x 2 months C XR at OSH showed no acute cardiopulmonary process N o anemia noted. Would check TSH and d-dimer W ill check echo to look for any LVH or WMA w ill do PFTs and 6 minute walk test w ill do regadenosine echo to look for ischemia S he cannot ambulate d/t SOB and orthopedic injury post childhood injury which has left damage to left knee and ankle O rders: 9 9204 MOD 45-59 min (CPT-76823) 6 minute walk test (CPT-51977) C omplete Echo (33281) S tress Regadenoson (CPT-36642) P ROBNP, N TERMINAL (99123) L IPID PANEL (4750) T SH, free T4, total T3 (3444) H EMOGLOBIN A1c (496) Doris Alarcon [facility] Cardiology Noel Gottlieb Cardiology: H er updated medication list for this problem includes: Ezetimibe 10 Mg Tablet (Ezetimibe) ..... Take 1 tablet by mouth once a day Rosuvastatin 40 Mg Tablet (Rosuvastatin) ..... Take 1 tablet by mouth once a day Noel Shirley MD Cardiology Noel Gottlieb Cardiology Noel Gottlieb Cardiology Noel Gotltieb Cardiology Noel Gottlieb Cardiology Noel Gottlieb Cardiology Noel Gottlieb Cardiology, 91668:cessation enco uragd. Doris Dorian [facility] Cardiology, 94802:mo ther at 38 had CABG in late 20s M aternal grandmother CABG in 50s Doris Talleyglia [facility] Cardiology, 85528:Wi ll do 6 minute walk and PFTs H er updated medication list for this problem includes: Albuterol Sulfate 90 Mcg/actuation Hfa Aerosol Inhaler (Albuterol sulfate) Orders: 9 9203 MOD 45-59 min (CPT-48716) 6 minute walk test (CPT-34792) C omplete Echo (28526) S tress Regadenoson (CPT-85775) P ROBNP, N TERMINAL (44065) L IPID PANEL (7600) T SH, free T4, total T3 (7444) H EMOGLOBIN A1c (496) Dorischasity Alarcon [facility] Cardiology, 51867:Wi th associated SOB and chest pain r ecent tele at OSH showed HR sinus tachycardia ranging from 69-156 average of 92 n o underlying arrhythmia u pdate labs and echo as noted above [place] Gerrizena [facility] Cardiology, 01824:Mike aguiar has had increasing SOB with minimal activity C annot make her bed or walk across her house without becoming SOB and tachycardic H as been ongoing x 2 months C XR at OSH showed no acute cardiopulmonary process N o anemia noted. Would check TSH and d-dimer W ill check echo to look for any LVH or WMA w ill do PFTs and 6 minute walk test w ill do regadenosine echo to look for ischemia S he cannot ambulate d/t SOB and orthopedic injury post childhood injury which has left damage to left knee and ankle O rders: 9 9203 MOD 45-59 min (CPT-47573) 6 minute walk test (CPT-36223) C omplete Echo (05136) S tress Regadenoson (CPT-46802) P ROBNP, N TERMINAL (19601) L IPID PANEL (7600) T SH, free T4, total T3 (7444) H EMOGLOBIN A1c (496) Doris Alarcon [facility] Date Name CT Angio Coronaries Arterial Duplex Bi-L ower EX Stress Regadenoson LIPID PANEL HEMOGLOBIN A1c TSH, free T4, total T3 LIPID PANEL PROBNP, N TERMINAL Stress Regadenoson Complete Echo 6 minute walk test DLCO - 18043 FRC - 42960 FVC - 40602 HISTORY OF PROCEDURES Procedure Date Procedure Name Provider Procedure Notes S tatus Spirometry Noel Shirley MD complet ed BLOOD COUNT HEMOGLOBIN Noel Shirley MD completed FVC / MVV with bronchodilator - 81551 Noel Shirley MD completed FRC - 45348 Noel Shirley MD comple michelle SpO2 w/o 6min walk/titration Noel Shirley MD completed SVC - 31648 Noel Shirley MD comple michelle DLCO - 00841 Noel Shirley MD compl eted 6 minute walk test Noel Shirley MD completed EKG Noel Shirley MD complet ed
--- OUTSIDE RECORDS SUMMARY | 2024-08-09 17:55 | XMS_ITS | Patient Health Summary ---
Author Organization [facility] Address [address] [place] [address] Care Team Providers Care English Horn Player Name Role Phone Ramin Stephanieelizabeth Arreola APRN-[facility] Primary Care Provider + Note from [facility],non-owned Affiliates and Associated Physician Practices is amultiple site organization consisting of ambulatory clinics and hospital sitesin [place], [place], [place] and [place]. This disclosure is being madepursuant to the Care Everywhere program and may not contain all information available regarding this patient. Last updated 18.[facility] Allergies * Codeine(Swelling) -High Criticality * Penicillins(Anaphylaxis) [...] Smokes medical marijuana prn for pain Active Problems No known active problems Social [...] Comments Blood Pressure 122/72 06/27/2024 1:02 PM HAND CEMENTER Pulse 104 06/27/2024 1:02 PM HAND CEMENTER Temperature 36.7 C (98.1 F) 06/27/2024 1:02 PM HAND CEMENTER Respiratory Rate - - Oxygen Saturation 100% 06/27/2024 1:02 PM HAND CEMENTER Inhaled Oxygen Concentration - - Weight 68.8 kg (151 lb 12 oz) 06/27/2024 1:02 PM HAND CEMENTER Height 170.2 cm (5' 7 ) 06/27/2024 1:02 PM HAND CEMENTER Body Mass Index 23.77 06/27/2024 1:02 PM HAND CEMENTER Procedures * TSH HI LOW REFLEX FREE T4(Performed 06/27/2024) Performed for Leukocytosis, unspecified type * CBC W AUTO DIFFERENTIAL (CANCER CARE)(Performed 06/27/2024) Performed for Leukocytosis, unspecified type * XR CHEST 2VW(Performed 05/08/2024) Performed for Positive RENO (antinuclear antibody), Leukocytosis, unspecified type * SS-A/SS-B [...] mouth, Numbness, Other low back pain * DIRECTOR EXTERNAL COMMUNICATIONS ANTIBODY(Performed 04/12/2024) Performed for Positive RENO (antinuclear [...] LOW REFLEX FREE T4 (06/27/2024 3:44 PM HAND CEMENTER) TSH 1.778 0.350 - 4.940 uIU/mL [facility] INSURANCE BILL Blood BLOOD SPECIMEN / Unknown 06/27/2024 3:44 PM HAND CEMENTER 06/27/2024 Comment:Blood Release to beth Ingram [facility] INSURANCE BILL - 06/27/2024 11:06 PM HAND CEMENTER Performed at: [facility] [address] [place], [place] [address] Slope Tender: Daryn Ruffin MD, Phone: [phone] Joey Canela MD LAB - CHEMISTRY CARI DELGADO [facility] INSURANCE BILL [address] [place] [address] * (ABNORMAL) CBC W AUTO DIFFERENTIAL (CANCER CARE) (06/27/2024 1:46 PM HAND CEMENTER) WBC 9.6 4.4 - 10.7 x10E9/L 06/27/2024 2:09 PM HAND CEMENTER [facility] Neutrophils % 37.1(L) 44.0 - 73.0 % 06/27/2024 2:09 PM HAND CEMENTER [facility] Lymphocytes % 50.8(H) 20.0 - 43.0 % 06/27/2024 2:09 PM HAND CEMENTER [facility] Monocytes % 9.9 5.0 - 13.0 % 06/27/2024 2:09 PM HAND CEMENTER [facility] Eosinophils % 0.5 0.0 - 6.0 % 06/27/2024 2:09 PM HAND CEMENTER [facility] Basophils % 1.1 0.0 - 2.0 % 06/27/2024 2:09 PM HAND CEMENTER [facility] Immature Granulocytes 0.6 <=1 % 06/27/2024 2:09 PM HAND CEMENTER [facility] Neutrophil Absolute 3.55 2.01 - 7.14 x10E9/L 06/27/2024 2:09 PM HAND CEMENTER [facility] Lymphocytes Absolute 4.88(H) 1.07 - 3.94 x10E9/L 06/27/2024 2:09 PM HAND CEMENTER [facility] Monocytes Absolute 0.95 0.26 - 1.07 x10E9/L 06/27/2024 2:09 PM HAND CEMENTER [facility] Eosinophils Absolute 0.05 0 - 0.47 x10E9/L 06/27/2024 2:09 PM HAND CEMENTER [facility] Basophils Absolute 0.11(H) 0 - 0.08 x10E9/L 06/27/2024 2:09 PM HAND CEMENTER [facility] RBC 4.30 3.80 - 5.20 x10E12/L 06/27/2024 2:09 PM [facility] Hemoglobin 14.0 12.0 - 15.6 gm/dL 06/27/2024 2:09 PM [facility] Hematocrit 41.0 35.9 - 45.5 % 06/27/2024 2:09 PM [facility] MCV 95.3 80.7 - 98.3 fl 06/27/2024 2:09 PM [facility] MCH 32.6 26.7 - 34.0 pg 06/27/2024 2:09 PM [facility] MCHC 34.1 30.8 - 35.9 gm/dL 06/27/2024 2:09 PM [facility] RDW-CV 14.2 12.1 - 14.9 % 06/27/2024 2:09 PM [facility] Platelet Count 352 153 - 416 x10E9/L 06/27/2024 2:09 PM [facility] MPV 9.0(L) 9.4 - 12.9 fl 06/27/2024 2:09 PM [facility] NRBC 0.0 <=0 /100 WBC 06/27/2024 2:09 PM [facility] Blood BLOOD SPECIMEN / Unknown 06/27/2024 1:46 PM HAND CEMENTER 06/27/2024 1:46 PM HAND CEMENTER Joey Canela MD LAB - HEMATOLOGY ORD ERABLES [facility] [address] * XR Chest 2Vw (05/08/2024) Anatomical Region Laterality Modality Chest Other Tamika George MD DIAGNOSTIC IMAGING O RDERABLES * OLSON (SM) ANTIBODY UBALDO (04/12/2024 12:08 PM HAND CEMENTER) SM Antibody <1.0 NEG <1.0 NEG AI [facility] Comment: Test Performed at: [employer] [address] [address] LORNA HOLLEY MD Blood BLOOD SPECIMEN / Unknown 04/12/2024 12:08 PM HAND CEMENTER 04/12/2024 12:08 PM HAND CEMENTER Tamika George MD LAB - CHEMISTRY ORDKristopher DELGADO Performing Organization Address [facility]/ZIP Co de Phone Number [address] [address] * DIRECTOR EXTERNAL COMMUNICATIONS ANTIBODY (04/12/2024 12:08 PM HAND CEMENTER) Pathologist [facility] DIRECTOR EXTERNAL COMMUNICATIONS Antibody <1.0 NEG <1.0 NEG AI [facility] Comment: Test Performed at: [facility] [address] [place] [address] LORNA HOLLEY MD Blood BLOOD SPECIMEN / Unknown 04/12/2024 12:08 PM HAND CEMENTER 04/12/2024 12:08 PM HAND CEMENTER Tamika George MD LAB - CHEMISTRY ORDKristopher DANNY Performing Organization Address [facility] Co de Phone Number [facility] [address] [place] [address] * RENO BLOOD SCREEN W/REFLEX TITER (04/12/2024 12:08 PM HAND CEMENTER) Pathologist [facility] RENO Screen NEGATIVE NEGATIVE [facility] Comment: RENO [...] AC-0: Negative International Consensus on RENO Patterns (https://doi.org/10.1515/ckhc-2474-4770) For additional information, please refer to http://education.PlayCrafter/faq/YEK593 (This link is being provided for informational/ educational purposes only.) Test Performed at: [facility] [place] [address] LORNA HOLLEY MD Blood BLOOD SPECIMEN / Unknown 04/12/2024 12:08 PM HAND CEMENTER 04/12/2024 12:08 PM HAND CEMENTER Tamika George MD LAB - CHEMISTRY CARI DELGADO Performing Organization Address [facility]/ZIP Co de Phone Number [facility] [phone] [place] [address] * SS-A/SS-B (SJOGREN'S) ANTIBODY PANEL (04/12/2024 12:08 PM HAND CEMENTER) Sjogren's Antibodies (SSA) <1.0 NEG <1.0 NEG AI [facility] Sjogren's Antibodies (SSB) <1.0 NEG <1.0 NEG AI [facility] Comment: Test Performed at: Known [facility] [place] [address] LORNA HOLLEY MD Blood BLOOD SPECIMEN / Unknown 04/12/2024 12:08 PM HAND CEMENTER 04/12/2024 12:08 PM HAND CEMENTER Tamika George MD LAB - CHEMISTRY CARI DELGADO Performing Organization Address [facility] Co de Phone Number [place] [address] [place] [address] * SCLERODERMA 70 (SCL) ANTIBODY (04/12/2024 12:08 PM HAND CEMENTER) SCL-70 Antibody <1.0 NEG <1.0 NEG AI [facility] Comment: Test Performed at: [employer] [address] [place] [address] LORNA HOLLEY MD Blood BLOOD SPECIMEN / Unknown 04/12/2024 12:08 PM HAND CEMENTER 04/12/2024 12:08 PM HAND CEMENTER Tamika George MD LAB - CHEMISTRY CARI DELGADO Performing Organization Address City/[facility]/ZIP Co de Phone Number RUST [address] [place] [address] * (ABNORMAL) SCLEROSIS 12 ANTIBODY PNL (04/12/2024 12:05 PM HAND CEMENTER) SCL-70 <11 <11 SI [facility] Centromere protein [...] 75 <11 <11 SI [facility] Comment: The [employer] [employer] (ACR) considers anti-Scl-70 (also [...] patients and anti-RP155 antibodies in about 8%. Avvg-C4-ulNCV antibodies are associated with SSc and inflammatory myopathy overlap syndromes. Three major components of U1-snRNP are tested: U1-snRNP DIRECTOR EXTERNAL COMMUNICATIONS A, U1-snRNP DIRECTOR EXTERNAL COMMUNICATIONS C, U1-snRNP [id number]. The presence of U1-snRNP antibodies occur in [...] Fibrillarin antibodies are found more frequently in -Tajik patients and when seen in this population, [...] is directed to one of two proteins: PM/Aok845 and/or PM/Scl75. More information can be found at https://www.Gera-IT.[employer]./testcenter/testguide.action ?dc=CF-SystScler This test was developed and its analytical performance characteristics have been determined by [employer]. It has not been cleared or approved by FDA. This assay has been validated pursuant to the CLIA regulations and is used for clinical purposes. Test Performed at: [facility] [address] [place] [address] KISHAN ENCINAS MD,PHD,DELBERT Blood BLOOD SPECIMEN / Unknown 04/12/2024 12:05 PM HAND CEMENTER 04/12/2024 12:06 PM HAND CEMENTER Tamika George MD LAB - SEROLOGY ORDER DEEPTI [employer] [address] [place] [address] * HEPATITIS C AB W/RFLX TO HCV RNA QN PCR (04/12/2024 12:05 PM HAND CEMENTER) Hepatitis C Antibody NON-REACTI VE NON-REACT PRASHANTH [employer] Comment: HCV antibody was non-reactive. There is no laboratory evidence of HCV infection. In most cases, no further action is required. However, if recent HCV exposure is suspected, a test for HCV RNA (test code 65384) is suggested. For additional information please refer to http://education.Gera-ITBaker [employer]/faq/DSV44x1 (This link is being provided for informational/ educational purposes only.) Test Performed at: [facility] [address] [address] [address] LORNA HOLLEY MD Blood BLOOD SPECIMEN / Unknown 04/12/2024 12:05 PM HAND CEMENTER 04/12/2024 12:06 PM HAND CEMENTER Tamika George MD LAB - CHEMISTRY ORDE RABEFRAIN Performing Organization Address [facility] [place] [address] * DNA ANTIBODY DS CRITHIDIA W/REFLEX TITER (04/12/2024 12:05 PM HAND CEMENTER) dsDNA Antibody Crithidia IFA NEGATIVE NEGATIVE [facility] Comment: Test Performed at: [facility] [address] [place] [address] KISHAN ENCINAS MD,PHD,DELBERT Blood BLOOD SPECIMEN / Unknown 04/12/2024 12:05 PM HAND CEMENTER 04/12/2024 12:06 PM HAND CEMENTER Tamika George MD LAB - HEMATOLOGY ORD ERABLES Performing Organization Address [facility] [place] [address] * URINALYSIS W/MICROSCOPIC NO CULTURE (04/12/2024 12:05 PM HAND CEMENTER) Color UA YELLOW YELLOW [facility] Appearance CLEAR CLEAR [facility] Specific Gardiner UA 1.008 1.001 - 1.035 [facility] pH [...] SEEN /LPF [facility] Comment: Test Performed at: [facility] [place] [address] [facility] [place] [address] LORNA HOLLEY MD Granular Casts [facility] Casts UA [facility] Yeast [facility] Comments [facility] Note [facility] Comment: Test Performed at: [facility] [place] [address] [address] [facility] [place] [address] LORNA HOLLEY MD Urine URINE SPECIMEN OBTAINED BY CLEAN CATCH PROCEDURE / Unknown 04/12/2024 12:05 PM HAND CEMENTER 04/12/2024 12:06 PM HAND CEMENTER Tamika George MD LAB - URINALYSIS ORD ERABLES Performing Organization Address [facility] Co de Phone Number [place] [phone] [place] [address] * HEPATITIS B CORE ANTIBODY REFLEX IGM (04/12/2024 12:05 PM HAND CEMENTER) Pathologist [facility] Hepatitis B Core Virus Antibody Total NON-REACTI VE NON-REACT PRASHANTH [facility] Comment: For additional information, please refer to http://education.AbilTo/faq/KEO286 (This link is being provided for informational/ educational purposes only.) Test Performed at: Cmed [place] [address] [facility] [place] [address] LORNA HOLLEY MD Blood BLOOD SPECIMEN / Unknown 04/12/2024 12:05 PM HAND CEMENTER 04/12/2024 12:06 PM HAND CEMENTER Tamika George MD LAB - SEROLOGY ORDER DEEPTI Performing Organization Address [facility] Co de Phone Number [address] [address] * CARDIOLIPIN ANTIBODY IGA/IGG/IGM PANEL (04/12/2024 12:05 PM HAND CEMENTER) Cardiolipin Antibody IgA <2.0 APL-U/mL [facility] Comment: Value Interpretation ----- < 20.0 Antibody not detected > or = 20.0 Antibody detected Cardiolipin Antibody IgG <2.0 GPL-U/mL [facility] Comment: Value Interpretation ----- < 20.0 Antibody not detected > or = 20.0 Antibody detected Cardiolipin Antibody IgM <2.0 MPL-U/mL [facility] Comment: Value Interpretation ----- < 20.0 Antibody [...] aging. For additional information, please refer to http://PhysicianPortal.AbilTo/faq/IXV382 (This link is being provided for informational/ educational purposes only.) Test Performed at: [facility] [address] [address] NEREYDA [place] Blood BLOOD SPECIMEN / Unknown 04/12/2024 12:05 PM HAND CEMENTER 04/12/2024 12:06 PM HAND CEMENTER Tamika George MD LAB - SEROLOGY ORDER DEEPTI [employer] [address] [place] [address] * LUPUS ANTICOAGULANT PANEL W RFLX (04/12/2024 12:05 PM HAND CEMENTER) Pathologist [facility] Lupus Anticoagulant NOT DETECTED [facility] Comment: A Lupus Anticoagulant is not detected. For more information on this test, go to: http://PhysicianPortal.AbilTo/faq/JRD06y5 (This link is being provided for informational/ educational purposes only.) This interpretation is based on the following test results: PTT LA Screen 34 < OR = 40 sec [facility] dRVVT Screen 45 < OR = 45 sec [facility] Comment: Test Performed at: [facility] [address] [place] [address] NEREYDA [place] Blood BLOOD SPECIMEN / Unknown 04/12/2024 12:05 PM HAND CEMENTER 04/12/2024 12:06 PM HAND CEMENTER Tamika George MD LAB - HEMATOLOGY ORD ERABLES [employer] [address] [place] [address] * BETA-2 GLYCOPROTEIN 1 ANTIBODY IGG/IGM/IGA PANEL (04/12/2024 12:05 PM HAND CEMENTER) Beta-2 Glycoprotein I Antibody IgG <2.0 <20.0 [...] aging. For additional information, please refer to http://education.Gera-IT.[employer]./faq/GYU026 (This link is being provided for informational/ educational purposes only.) Test Performed at: [facility] [address] [place], [place] RADHA ROMERO MD,PHD Blood BLOOD SPECIMEN / Unknown 04/12/2024 12:05 PM HAND CEMENTER 04/12/2024 12:06 PM HAND CEMENTER Tamika George MD LAB - SEROLOGY ORDER DEEPTI Performing Organization Address [facility] [place] [address] * RHEUMATOID FACTOR BLOOD QUANTITATIVE (04/12/2024 12:05 PM HAND CEMENTER) Rheumatoid Factor <10 <14 IU/mL [facility] Comment: Test Performed at: [employer] [address] [address] LORNA HOLLEY MD Blood BLOOD SPECIMEN / Unknown 04/12/2024 12:05 PM HAND CEMENTER 04/12/2024 12:06 PM HAND CEMENTER Tamika George MD LAB - CHEMISTRY ORDKristopher DELGADO Performing Organization Address [facility] Co de Phone Number [address] [address] * C-REACTIVE PROTEIN (04/12/2024 12:05 PM HAND CEMENTER) C-Reactive Protein <3.0 <8.0 mg/L [facility] Comment: Test Performed at: [facility] [place] [address] [address] LORNA HOLLEY MD Blood BLOOD SPECIMEN / Unknown 04/12/2024 12:05 PM HAND CEMENTER 04/12/2024 12:06 PM HAND CEMENTER Tamika George MD LAB - CHEMISTRY CARI DELGADO Performing Organization Address [facility] [place] [address] * ANGIOTENSIN CONVERTING ENZYME BLOOD (04/12/2024 12:05 PM HAND CEMENTER) Angiotensin-Conv erting Enzyme 52 9 - 67 U/L [facility] Comment: Test Performed at: [employer] [address] [facility] [place] [address] LORNA HOLLEY MD Blood BLOOD SPECIMEN / Unknown 04/12/2024 12:05 PM HAND CEMENTER 04/12/2024 12:06 PM HAND CEMENTER Tamika George MD LAB - CHEMISTRY ORDKristopher DELGADO Performing Organization Address City/[facility]/ZIP Co de Phone Number [place] [address] [place] [address] * ALDOLASE (04/12/2024 12:05 PM HAND CEMENTER) Pathologist [facility] Aldolase 6.2 < OR = 8.1 U/L [facility] Comment: Test Performed at: [facility] [address] [facility] [place] [place] [address] LORNA HOLLEY MD Blood BLOOD SPECIMEN / Unknown 04/12/2024 12:05 PM HAND CEMENTER 04/12/2024 12:06 PM HAND CEMENTER Tamika George MD LAB - CHEMISTRY ORDKristopher DELGADO Performing Organization Address City/[facility]/ZIP Co de Phone Number [place] [address] [place] [address] * THIOPURINE METHYLTRANSFERASE (04/12/2024 12:05 PM HAND CEMENTER) Pathologist [facility] TPMT Activity 18 nmol/hr/mL RBC [facility] Comment: Reference Range for TPMT Activity: >12 Normal 4-12 Heterozygote or low metabolizer <4 Homozygote Deficient Range This test was developed and its analytical performance characteristics have been determined by [employer]. It has not been cleared or approved by FDA. This assay has been validated pursuant to the CLIA regulations and is used for clinical purposes. Test Performed at: [facility] [address] [place] [address] KISHAN ENCINAS MD,PHD,DELBERT Blood BLOOD SPECIMEN / Unknown 04/12/2024 12:05 PM HAND CEMENTER 04/12/2024 12:06 PM HAND CEMENTER Tamika George MD LAB - CHEMISTRY CARI DELGADO Performing Organization Address [facility] [place] [address] * CYCLIC CITRULLINATED PEPTIDE(CCP) AB IGG (04/12/2024 12:05 PM HAND CEMENTER) Pathologist [facility] Cyclic Citrullinated Peptide Antibody IgG <16 UNITS [facility] Comment: Reference Range Negative: <20 Weak Positive: 20-39 Moderate Positive: 40-59 Strong Positive: >59 Test Performed at: Known [place] [address] LORNA HOLLEY MD Blood BLOOD SPECIMEN / Unknown 04/12/2024 12:05 PM HAND CEMENTER 04/12/2024 12:06 PM HAND CEMENTER Tamika George MD LAB - CHEMISTRY CARI DELGADO Performing Organization Address [facility] [place] [address] * ERYTHROCYTE SEDIMENTATION RATE (04/12/2024 12:05 PM HAND CEMENTER) [facility] Erythrocyte Sedimentation Rate Westergren 11 < OR = 30 mm/h [facility] Comment: Test Performed at: Known [place] [address] LORNA HOLLEY MD Blood BLOOD SPECIMEN / Unknown 04/12/2024 12:05 PM HAND CEMENTER 04/12/2024 12:06 PM HAND CEMENTER Tamika George MD LAB - HEMATOLOGY FRANK HERRERA Performing Organization Address [facility] Co de Phone Number [facility] [phone] [place] [address] * (ABNORMAL) CBC WITH DIFFERENTIAL (04/12/2024 12:05 PM HAND CEMENTER) [facility] White Blood Cell Count 11.3(H) 3.8 - [...] 1.1 % [facility] Comment: Test Performed at: [facility] [place]rupt [address] LORNA HOLLEY MD Blood BLOOD SPECIMEN / Unknown 04/12/2024 12:05 PM HAND CEMENTER 04/12/2024 12:06 PM HAND CEMENTER Tamika George MD LAB - HEMATOLOGY ORD ERABLES [facility] [address] [place] [address] * COMPLEMENT C4 (04/12/2024 12:05 PM HAND CEMENTER) Complement C4 36 15 - 57 mg/dL [facility] Comment: Test Performed at: [facility] [place] [address] LORNA HOLLEY MD Blood BLOOD SPECIMEN / Unknown 04/12/2024 12:05 PM HAND CEMENTER 04/12/2024 12:06 PM HAND CEMENTER Tamika George MD LAB - SEROLOGY ORDER DEEPTI Performing Organization Address [facility] de Phone Number [facility] [address] [place] [address] * (ABNORMAL) PROTEIN CREATININE RATIO URINE RANDOM PNL (04/12/2024 12:05 PM HAND CEMENTER) Pathologist [facility] Creatinine Urine 41 20 - 275 mg/dL [facility] Protein/Creatini ne Ratio 98 24 - 184 mg/g creat [facility] Protein/Creatini ne Ratio 0.098 0.024 - 0.184 mg/mg creat [facility] Protein Random Urine 4(L) 5 - 24 mg/dL [facility] Comment: Verified by repeat analysis. Test Performed at: Known [place] [address] LORNA HOLLEY MD Urine URINE SPECIMEN OBTAINED BY CLEAN CATCH PROCEDURE / Unknown 04/12/2024 12:05 PM HAND CEMENTER 04/12/2024 12:06 PM HAND CEMENTER Tamika George MD LAB - URINE CHEMISTR Y ORDERABLES Performing Organization Address [facility] de Phone Number [facility] [phone] [place] [address] * HEPATITIS B SURFACE ANTIGEN W RFLX CONFIRMATION (04/12/2024 12:05 PM HAND CEMENTER) Pathologist [facility] Hepatitis B Virus Surface Antigen NON-REACT PRASHANTH NON-REACT PRASHANTH [facility] Comment: For additional information, please refer to http://education.AbilTo/faq/DEG044 (This link is being provided for informational/ educational purposes only.) Test Performed at: [facility] [place] [id number] [address] LORNA HOLLEY MD Confirmation [facility] Comment: Test Performed at: [facility] [place] [address] [address] [address] LORNA HOLLEY MD Blood BLOOD SPECIMEN / Unknown 04/12/2024 12:05 PM HAND CEMENTER 04/12/2024 12:06 PM HAND CEMENTER Tamika George MD LAB - CHEMISTRY ORDE RABLES Performing Organization Address [facility] Co de Phone Number [facility] [address] [place] [address] * CREATININE BLOOD (04/12/2024 12:05 PM HAND CEMENTER) Creatinine 0.76 0.50 - 1.03 mg/dL [facility] eGFR by Cystatin C 92 > OR = 60 mL/min/1.7 3m2 [facility] Comment: Test Performed at: Known [place]rupt [address] LORNA HOLLEY MD Blood BLOOD SPECIMEN / Unknown 04/12/2024 12:05 PM HAND CEMENTER 04/12/2024 12:06 PM HAND CEMENTER Tamika George MD LAB - CHEMISTRY CARI DELGADO Performing Organization Address City/[facility]/ZIP Co de Phone Number [facility] [address] [place] [address] * CK BLOOD (04/12/2024 12:05 PM HAND CEMENTER) CK 80 29 - 143 U/L [facility] Comment: Test Performed at: Known [place] [employer] [place], [place] [address] LORNA HOLLEY MD Blood BLOOD SPECIMEN / Unknown 04/12/2024 12:05 PM HAND CEMENTER 04/12/2024 12:06 PM HAND CEMENTER Tamika George MD LAB - CHEMISTRY CARI DELGADO Performing Organization Address City/[facility] Co de Phone Number [facility] [address] [place] [address] * CALCIUM IONIZED BLOOD (04/12/2024 12:05 PM HAND CEMENTER) Calcium Ionized 4.9 4.7 - 5.5 mg/dL [facility] Comment: Test Performed at: [facility] [place] [address] [place] [address] LORNA HOLLEY MD Blood BLOOD SPECIMEN / Unknown 04/12/2024 12:05 PM HAND CEMENTER 04/12/2024 12:06 PM HAND CEMENTER Tamika George MD LAB - CHEMISTRY CARI DELGADO [facility] [address] [place] [address] * (ABNORMAL) LIPID PROFILE (LIPID PANEL) (04/12/2024 12:05 PM HAND CEMENTER) Cholesterol 136 <200 mg/dL [facility] HDL Cholesterol [...] LDL-C. Bravo SS et al. ANTIONE. 2013;310(19): 0426-0837 (http://education.PlayCrafter/faq/BIX889) CHOL/HDLC RATIO 3.0 <5.0 (calc) [facility] Non HDL Cholesterol 90 <130 mg/dL (calc) [facility] Comment: For patients with diabetes plus 1 major ASCVD risk factor, treating to a non-HDL-C goal of <100 mg/dL (LDL-C of <70 mg/dL) is considered a therapeutic option. Test Performed at: Known [place] [address] LORNA HOLLEY MD Blood BLOOD SPECIMEN / Unknown 04/12/2024 12:05 PM HAND CEMENTER 04/12/2024 12:06 PM HAND CEMENTER Tamika George MD LAB - CHEMISTRY CARI DELGADO [facility] [address] [place] [address] * COMPLEMENT C3 (04/12/2024 12:05 PM HAND CEMENTER) Complement C3 147 83 - 193 mg/dL [facility] Comment: Test Performed at: [employer] [address] [address] LORNA HOLLEY MD Blood BLOOD SPECIMEN / Unknown 04/12/2024 12:05 PM HAND CEMENTER 04/12/2024 12:06 PM HAND CEMENTER Tamika George MD LAB - CHEMISTRY CARI DELGADO [facility] [address] [place] [address] Care Teams English Horn Player Relationship Specialty Start Date End Date Stephanie Faustin, PRECINCT I POLICE SERGEANT-BACK END [employer]ECT [address] [place] [address] PCP - General Nurse Practitioner Family 06/27/24
--- OUTSIDE RECORDS SUMMARY | 2024-08-09 17:55 | XMS_ITS | Clinical Summary ---
Author Organization [facility] Address [address] [place] [address] Care Team Providers Care Bulkhead Carpenter Name Role Phone RaminStephaine Elba [facility] Primary Care Provider + Source Comments [facility],non-owned Affiliates and Associated Physician Practices is amultiple site organization consisting of ambulatory clinics and hospital sitesin [place], [place], [place]. This disclosure is being madepursuant to the Care Everywhere program and may not contain all information available regarding this patient. Last updated 18.[facility] Allergies Active Allergy Reactions Criticality Noted Date [...] Active Active Problems No known active problems Encounters Date Type Department Care Team Description 08/04/[address] [address] Joey Canela MD General 07/17/2024 Orders Only [facility] CC LAB [address] [id number] Tricia Goetz, WET PAN MIXER(ASCP) Thrombocytopenia (HCC) ; Leukocytosis, unspecified type; Anemia, unspecified type 07/17/2024 Orders Only [facility] [address] [phone] Tricia Goetz, WET PAN MIXER(ASCP) Thrombocytopenia (HCC) ; B12 deficiency; Anemia, unspecified type; Leukocytosis, unspecified type 07/14/[address] [address] Joey Canela MD General 07/05/2024 Orders Only [address] [phone] Joey Canela MD 07/04/[address] [address] Joey Canela MD General 06/27/2024 12:50 PM SEWER CONTRACTOR Office Visit [address] [address] Joey Canela MD Leukocytosis, unspecified type (Primary Dx); Tobacco abuse 05/11/2024 Orders Only [facility] - Rheumatology [address] [place] [address], [facility] [address] [place] [phone] Tamika George MD Positive RENO (antinuclear antibody); [...] Comments Blood Pressure 122/72 06/27/2024 1:02 PM SEWER CONTRACTOR Pulse 104 06/27/2024 1:02 PM SEWER CONTRACTOR Temperature 36.7 C (98.1 F) 06/27/2024 1:02 PM SEWER CONTRACTOR Respiratory Rate - - Oxygen Saturation 100% 06/27/2024 1:02 PM SEWER CONTRACTOR Inhaled Oxygen Concentration - - Weight 68.8 kg (151 lb 12 oz) 06/27/2024 1:02 PM SEWER CONTRACTOR Height 170.2 cm (5' 7 ) 06/27/2024 1:02 PM SEWER CONTRACTOR Body Mass Index 23.77 06/27/2024 1:02 PM SEWER CONTRACTOR Plan of Treatment Upcoming Encounters Date Type Department Care Team (Late st Contact Info) Description 12/26/2024 2:00 PM CDT Documentation [address] [address] 12/26/2024 2:10 PM CDT Office Visit [facility] Cancer [address] [address] Joey Canela MD [address] [place] [phone] Health Maintenance Due Date Last Done Comments [...] to complete this topic MENINGOCOCCAL (Group B) VACC INE SHARED DECISION-MAKING Aged Out No longer eligibl e based on patient's age to complete this topic MENINGOCOCCAL GROUPS A/C/Y/W VACCINE Aged Out No longer eligible b ased on patient's age to complete this topic Procedures Procedure Name Priority Date/Time Associated Diagnosis Comments TSH HI LOW REFLEX FREE T4 Routine 06/27/2024 3:44 PM SEWER CONTRACTOR Leukocytosis, unspecified type CBC W AUTO DIFFERENTIAL (CANCER CARE) Routine 06/27/2024 1:46 PM SEWER CONTRACTOR Leukocytosis, unspecified type HEPATITIS C AB W/RFLX TO HCV RNA QN PCR Routine 04/12/2024 12:05 PM SEWER CONTRACTOR Positive RENO (antinuclear antibody) Polyarthralgia Myalgia, multiple sites Other fatigue Dry mouth Numbness Other low back pain from Last 3 Months or Most Recently Relevant to Health Maintenance Results * TSH HI LOW REFLEX FREE T4 (06/27/2024 3:44 PM SEWER CONTRACTOR) TSH 1.778 0.350 - 4.940 uIU/mL [facility] INSURANCE BILL Blood BLOOD SPECIMEN / Unknown 06/27/2024 3:44 PM SEWER CONTRACTOR 06/27/2024 Comment:Blood Release to beth Ingram [facility] INSURANCE BILL - 06/27/2024 11:06 PM SEWER CONTRACTOR Performed at: [address] [place] [id number] Acid Adjuster: Daryn Ruffin MD, Phone: [phone] Joey Canela MD LAB - CHEMISTRY CARI DELGADO [facility] INSURANCE BILL [address] [place] [address] * (ABNORMAL) CBC W AUTO DIFFERENTIAL (CANCER CARE) (06/27/2024 1:46 PM SEWER CONTRACTOR) WBC 9.6 4.4 - 10.7 x10E9/L 06/27/2024 2:09 PM SEWER CONTRACTOR [facility] CC LAB STM Neutrophils % 37.1(L) 44.0 - 73.0 % 06/27/2024 2:09 PM [facility] CC LAB STM Lymphocytes % 50.8(H) 20.0 - 43.0 % 06/27/2024 2:09 PM SEWER CONTRACTOR [facility] CC LAB STM Monocytes % 9.9 5.0 - 13.0 % 06/27/2024 2:09 PM [facility] CC LAB STM Eosinophils % 0.5 0.0 - 6.0 % 06/27/2024 2:09 PM SEWER CONTRACTOR [facility] LAB STM Basophils % 1.1 0.0 - 2.0 % 06/27/2024 2:09 PM [facility] LAB STM Immature Granulocytes 0.6 <=1 % 06/27/2024 2:09 PM SEWER CONTRACTOR [facility] STM Neutrophil Absolute 3.55 2.01 - 7.14 x10E9/L 06/27/2024 2:09 PM SEWER CONTRACTOR [facility] STM Lymphocytes Absolute 4.88(H) 1.07 - 3.94 x10E9/L 06/27/2024 2:09 PM SEWER CONTRACTOR [facility] LAB STM Monocytes Absolute 0.95 0.26 - 1.07 x10E9/L 06/27/2024 2:09 PM SEWER CONTRACTOR [facility] STM Eosinophils Absolute 0.05 0 - 0.47 x10E9/L 06/27/2024 2:09 PM [facility] STM Basophils Absolute 0.11(H) 0 - 0.08 x10E9/L 06/27/2024 2:09 PM [facility] STM RBC 4.30 3.80 - 5.20 x10E12/L 06/27/2024 2:09 PM [facility] STM Hemoglobin 14.0 12.0 - 15.6 gm/dL 06/27/2024 2:09 PM [facility] STM Hematocrit 41.0 35.9 - 45.5 % 06/27/2024 2:09 PM [facility] STM MCV 95.3 80.7 - 98.3 fl 06/27/2024 2:[address] [facility] STM MCH 32.6 26.7 - 34.0 pg 06/27/2024 2:[address] [facility] MCHC 34.1 30.8 - 35.9 gm/dL 06/27/2024 2:[address] [facility] STM RDW-CV 14.2 12.1 - 14.9 % 06/27/2024 2:[address] [facility] STM Platelet Count 352 153 - 416 x10E9/L 06/27/2024 2:[address] [facility] STM MPV 9.0(L) 9.4 - 12.9 fl 06/27/2024 2:[address] [facility] STM NRBC 0.0 <=0 /100 WBC 06/27/2024 2:[address] [facility] Blood BLOOD SPECIMEN / Unknown 06/27/2024 1:46 PM SEWER CONTRACTOR 06/27/2024 1:46 PM SEWER CONTRACTOR Joey Canela MD LAB - HEMATOLOGY ORD ERABLES [facility] [address] * HEPATITIS C AB W/RFLX TO HCV RNA QN PCR (04/12/2024 12:05 PM SEWER CONTRACTOR) Hepatitis C Antibody NON-REACTI VE NON-REACT [facility] Comment: HCV antibody was non-reactive. There is no laboratory evidence of HCV infection. In most cases, no further action is required. However, if recent HCV exposure is suspected, a test for HCV RNA (test code 68255) is suggested. For additional information please refer to http://education.Freeze Tag/faq/ESU24e7 (This link is being provided for informational/ educational purposes only.) Test Performed at: [facility] [id number] [place] [address] LORNA HOLLEY MD Blood BLOOD SPECIMEN / Unknown 04/12/2024 12:05 PM SEWER CONTRACTOR 04/12/2024 12:06 PM SEWER CONTRACTOR Tamika George MD LAB - CHEMISTRY CARI DELGADO [facility] Organization Address City/State/[facility] Co de Phone Number [facility] [address] [place] [address] from Last 3 Months or Most Recently Relevant to Health Maintenance Care Teams Bulkhead Carpenter Relationship Specialty Start Date End Date Stephanie Faustin, DIRECT MAIL MANAGER-TELEVISION REPAIR TEACHER [address] [place] [phone] PCP - General Nurse Practitioner Family 06/27/24
== END 2024-08-09 16:43 | disposition home or self-care (01) ==
PROVIDERS: PCP Nurse Practitioner Family; Visit Provider Nurse Practitioner Family
DX: R22.1 Localized swelling, mass and lump, neck (principal)
CPT/HCPCS: 76536